=== PATIENT | female | born 1965 | race Caucasian/White ===

== ENCOUNTER 2016-03-03 00:45 | Observation (INO) | payer OTHER ==
[~2016-03-03] VITALS: Ht 157.5 cm; Wt 86.5 kg
[2016-03-03] VITALS (9 sets, daily range): BP systolic 124–166; BP diastolic 77–99; PULSE 66–86; TEMP 36.7–37.2; O2SAT 93–97; Ht 157.5 cm; Wt 86.5 kg
[~2016-03-03 00:45] MED LIST: ALBUAER2 INH; ASPI81TA57 PO; BUPRTAB51 PO; CLON0.5T3 PO; CTP1X PO; LORA-741 PO; LOSA100T33 PO; MULTTAB58 PO
[2016-03-03] MEDS ORDERED: SODIUM CHLORIDE 0.9% 1000ML 1,000 ML IV SCH (01:01)
[2016-03-03 01:32] LABS: BASO % 0.2 %; BASO ABS # 0.02 K/uL (0-0.2); COMPLETE YES; EOS % 2.5 %; HEMATOCRIT 41.5 % (37-47); IG% 0.1 %; LYMPH % 18.8 %; LYMPH ABS # 1.72 K/uL (1.2-3.4); MEAN CORPUSCULAR HEMOGLOBIN 27.8 pg (25-34); MEAN CORPUSCULAR HGB CONC 33.5 g/dl (32-36); MEAN PLATELET VOLUME 10.6 fL (7.4-10.4); MONO % 5.7 %; NEUT % 72.7 %; PLATELET COUNT 248 K/uL (130-400); WHITE BLOOD COUNT 9.15 K/uL (4.8-10.8)
[2016-03-03 01:42] LABS: PARTIAL THROMBOPLASTIN RATIO 1.2; PROTHROMBIN TIME (PATIENT) 10.5 SECONDS (9.0-12.0)
[2016-03-03 01:49] LABS: CHLORIDE 99 mmol/L (98-107); POTASSIUM 3.3 mmol/L (3.5-5.1); SODIUM 140 mmol/L (136-145)
[2016-03-03 01:54] LABS: ALT/SGPT 21 U/L (12-78); BLOOD UREA NITROGEN 19 mg/dl (7-18); BUN/CREATININE RATIO 22.8 (10-20); CARBON DIOXIDE 31 mmol/L (21-32); CREATININE 0.83 mg/dl (0.60-1.20); GLUCOSE 96 mg/dl (70-99)
[2016-03-03 01:58] LABS: AST/SGOT 19 U/L (15-37)
[2016-03-03 01:59] LABS: ALB/GLOB RATIO 0.8 (0.9-2); ALKALINE PHOSPHATASE 110 U/L (45-117)
[2016-03-03 02:04] LABS: CKMB/CK RATIO 0.5 (0-3.0)
[2016-03-03 02:20] LABS: BENZODIAZEPINE, URINE NEG (NEG); COCAINE,URINE NEG (NEG); PHENCYCLIDINE, URINE NEG (NEG)
[2016-03-03 02:25] LABS: LYME DISEASE AB IGG NEG (NEG); LYME DISEASE AB IGM NEG (NEG)
[2016-03-03] MEDS ORDERED: ASPIRIN 324 MG CHEW PO STA (03:04)
--- NOTE | 2016-03-03 04:45 | EMERGENCY ROOM VISIT NOTE ---
History First contact with patient: 00:54 Chief Complaint: NEURO SYMPTOMS Stated Complaint: STROKE SYMPTOMS Nursing Triage Summary: pt reports feeling dizzy with numb feeling in L side of face since this AM , then took reg night time medication of 0.5 clonazepam and cont to feel "shakey " called PCP told to take another 0.5mg of clonazepam, and spouse states " she just passed out I caught her" ,denies GROSSMAN or vision changes , denies NV at this time History of Present Illness The patient is a 50 year old female who presents to the Emergency Room with complaints of right-sided facial numbness that began around 3:30 PM, roughly 9 hours prior to arrival. Patient states the sensation begins around her cheek bone, crosses her lips, into the left side of her mandible. The patient does not have injury or trauma. She does not report recent illness. She was driving at the onset of symptoms, and went home. She states that this evening she felt that her blood pressure was elevated. She has had episodes like this in the past, and took clonazepam with only minimal improvement of symptoms. The patient then called her primary care physician's office, and she was told to take another half tablet of clonazepam. After the patient did this she had a witnessed syncopal episode. The patient did not strike her head or have seizure-like activity with the syncope. The patient was able to come to after several seconds, but was slow to return to baseline. She reportedly had difficulty with speech and forming words immediately after the syncope. This did resolve after a few minutes. The patient presents with a male special warfare boat operator, who does provide this history. At this time the patient continues with the facial discomfort. She is without significant headache, chest pain, chest tightness, or shortness of breath. She is able to move her arms and legs spontaneously. She has not had sore symptoms in the past. Review of Systems More than 10 systems were reviewed and otherwise negative with the exception of history of present illness. Past Medical/Surgical History Medical Problems: (1) Asthma, Unspecified (2) Depression (3) Disorder Of Thyroid Nos (4) Hypertension Nos Surgical Problems: (1) H/O partial thyroidectomy Family History No pertinent family history Social History Smoking Status: Never Smoker Marital Status: Occupation Status: employed Current/Historical Medications Scheduled Albuterol (Ventolin), 2 PUFFS INH DIRECTED Aspirin (Aspirin Ec Lo-Dose), 81 MG PO NOON Bupropion (Wellbutrin-Xl), 150 MG PO NOON Lorazepam (Ativan), 0.5 MG PO DIRECTED Losartan Potassium & Hydrochlo (Losartan Potassium/Hydroc), 1 TAB PO NOON Multiple Vitamin (Multivitamin), 1 TAB PO NOON Scheduled PRN Clonazepam (Klonopin), 0.5 MG PO HS PRN for Sleep Clonidine HCl (Clonidine HCl), 1 TAB PO DAILY PRN for Hypertension Allergies Coded Allergies: Iodinated Contrast Media (Verified Allergy, Severe, ANAPHYLAXIS AND PASSED OUT, 03/03/16) Iodine (Verified Allergy, Severe, ANAPHYLAXIS AND PASSED OUT, 03/03/16) Sulfa Drugs (Verified Allergy, Unknown, RASH, 03/03/16) Thiopental (Verified Allergy, Unknown, DIFFICULTY WAKING UP, 03/03/16) Physical Exam Vital Signs Date Time Temp Pulse Resp B/P Pulse Ox O2 Delivery O2 Flow Rate FiO2 03/03/16 02:39 76 18 143/87 96 Room Air 03/03/16 01:39 80 18 148/99 96 Room Air 03/03/16 01:27 76 03/03/16 00:47 36.9 93 20 168/91 96 Room Air Physical Exam VITALS: Vitals are noted on the nurse's note and reviewed by myself. Vital signs stable. GENERAL: Well-developed, well-nourished, white female, who is in no acute distress and resting comfortably. Patient is cooperative with the examination. HEAD: Normocephalic atraumatic. EARS: External ear normal. External auditory canals clear, tympanic membranes pearly valenzuela without erythema or effusion bilaterally. EYES: Pupils equal round and reactive to light and accommodation. Conjunctivae without injection, sclerae without icterus. Extraocular movements intact. She is able to move her eyebrows up and down. NOSE: Patent, turbinates without inflammation or discharge. MOUTH: Mucous membranes moist. Tonsils are not enlarged. Pharynx without erythema, blood, or exudate. Uvula midline. Airway patent. Very slight drooping of the right side mouth, although the patient is able to smile and frown. NECK: Supple without nuchal rigidity. No lymphadenopathy. No thyromegaly. Cervical spine is nontender. HEART: Regular rate and rhythm without murmurs gallops or rubs. LUNGS: Clear to auscultation bilaterally without wheezes, rales or rhonchi. No retractions or accessory muscle use. ABDOMEN: Positive normal bowel sounds x 4. Soft, nontender, without masses or organomegaly. No guarding or rebound tenderness. MUSCULOSKELETAL: No muscle atrophy, erythema, or edema noted. Full range of motion without joint tenderness in all extremities. Strength 5/5 throughout. No tenderness to palpation. Normal gait. Strength 5/5 throughout. No pronator drift. NEURO: Patient was alert and oriented to person place and time. CN II through XII grossly intact. Deep tendon reflexes 2+ throughout. GCS 15. SKIN: The skin was without rashes, erythema, edema, or bruising. Capillary reflex less than 2 seconds. Medical Decision & Procedures ER Provider Diagnostic Interpretation: Preliminary Findings Only See Final Report For Complete Findings CT HEAD: No evidence of acute intracranial abnormality. Laboratory Results 03/03/16 01:15 Red Blood Count 5.00, Mean Corpuscular Volume 83.0, Mean Corpuscular Hemoglobin 27.8, Mean Corpuscular Hemoglobin Concent 33.5, Mean Platelet Volume 10.6, Neutrophils (%) (Auto) 72.7, Lymphocytes (%) (Auto) 18.8, Monocytes (%) (Auto) 5.7, Eosinophils (%) (Auto) 2.5, Basophils (%) (Auto) 0.2, Neutrophils # (Auto) 6.65, Lymphocytes # (Auto) 1.72, Monocytes # (Auto) 0.52, Eosinophils # (Auto) 0.23, Basophils # (Auto) 0.02 03/03/16 01:15 Test 03/03/16 01:15 03/03/16 01:45 White Blood Count 9.15 K/uL (4.8-10.8) Red Blood Count 5.00 M/uL (4.2-5.4) Hemoglobin 13.9 g/dL (12.0-16.0) Hematocrit 41.5 % (37-47) Mean Corpuscular Volume 83.0 fL (80-100) Mean Corpuscular Hemoglobin 27.8 pg (25-34) Mean Corpuscular Hemoglobin Concent 33.5 g/dl (32-36) Platelet Count 248 K/uL (130-400) Mean Platelet Volume 10.6 fL (7.4-10.4) Neutrophils (%) (Auto) 72.7 % Lymphocytes (%) (Auto) 18.8 % Monocytes (%) (Auto) 5.7 % Eosinophils (%) (Auto) 2.5 % Basophils (%) (Auto) 0.2 % Neutrophils # (Auto) 6.65 K/uL (1.4-6.5) Lymphocytes # (Auto) 1.72 K/uL (1.2-3.4) Monocytes # (Auto) 0.52 K/uL (0.11-0.59) Eosinophils # (Auto) 0.23 K/uL (0-0.5) Basophils # (Auto) 0.02 K/uL (0-0.2) RDW Standard Deviation 40.1 fL (36.4-46.3) RDW Coefficient of Variation 13.3 % (11.5-14.5) Immature Granulocyte % (Auto) 0.1 % Immature Granulocyte # (Auto) 0.01 K/uL (0.00-0.02) Prothrombin Time 10.5 SECONDS (9.0-12.0) Prothromb Time International Ratio 1.0 (0.9-1.1) Activated Partial Thromboplast Time 31.7 SECONDS (21.0-31.0) Partial Thromboplastin Ratio 1.2 Anion Gap 10.0 mmol/L (3-11) Est Creatinine Clear Calc Drug Dose 81.2 ml/min Estimated GFR () 94.0 Estimated GFR (Non- 81.1 BUN/Creatinine Ratio 22.8 (10-20) Calcium Level 9.0 mg/dl (8.5-10.1) Total Bilirubin 0.2 mg/dl (0.2-1) Aspartate Amino Transf (AST/SGOT) 19 U/L (15-37) Alanine Aminotransferase (ALT/SGPT) 21 U/L (12-78) Alkaline Phosphatase 110 U/L (45-117) Total Creatine Kinase 234 U/L (26-192) Creatine Kinase MB 1.2 ng/ml (0.5-3.6) Creatine Kinase MB Ratio 0.5 (0-3.0) Troponin I < 0.015 ng/ml (0-0.045) Total Protein 8.0 gm/dl (6.4-8.2) Albumin 3.6 gm/dl (3.4-5.0) Globulin 4.4 gm/dl (2.5-4.0) Albumin/Globulin Ratio 0.8 (0.9-2) Lyme Disease IgG Antibody NEG (NEG) Lyme Disease IgM Antibody NEG (NEG) Urine Opiates Screen NEG (NEG) Urine Methadone, Qualitative NEG (NEG) Urine Barbiturates NEG (NEG) Urine Phencyclidine (PCP) Level NEG (NEG) Ur Amphetamine/Methamphetamine NEG (NEG) MDMA (Ecstasy) Screen POS (NEG) Urine Benzodiazepines Screen NEG (NEG) Urine Cocaine Metabolite NEG (NEG) Urine Marijuana (THC) NEG (NEG) Medications Administered Medications (Trade) Dose Ordered Sig/Mathew Route Start Time Stop Time Status Last Admin Dose Admin Sodium Chloride (Nss 1000ml) 1,000 ml @ 50 mls/hr Q20H IV 03/03/16 01:01 04/02/16 01:00 03/03/16 02:03 50 MLS/HR Aspirin (Aspirin Chew) 324 mg NOW STAT PO 03/03/16 03:04 03/03/16 03:05 DC 03/03/16 03:11 324 MG ED Course Physical exam and history were performed. Nursing notes and EMR were reviewed. Patient appears to have vague right-sided facial numbness that began greater than 9 hours prior to arrival. The patient subsequently took at home medications, and had a witnessed syncopal episode with collapse. On examination the patient does have a very mild right-sided drooping of the outside of her mouth. This does not constitute a distinct facial droop at this time. She is able to smile and frown. Additionally she is able to move her eyebrows on command. She has full strength and range of motion to her extremities. IV access was established and labs were obtained. The patient was placed on the monitor and hydrated with normal saline. CT scan of the head was performed. I discussed the case my attending physician, Dr. Sanchez, who remain closely involved in patient care and decision making. The patient's blood work is as above and was reviewed. She does not have a significantly elevated white blood cell count, anemia, bandemia, or gross electrolyte imbalance. Troponin is negative. Her other blood work is fairly unremarkable. CT scan does not show evidence of acute intracranial abnormality. The patient did have persisting, but not worsening right-sided facial drooping. Her Lyme is negative. Stroke scale was performed by nursing, and was 0. Overall I do have concern for the patient, as she did have a syncopal episode combined with right-sided mouth drooping. She does not appear to have a classic Aldana's palsy or stroke. The patient is felt to benefit from further inpatient evaluation. The case was discussed with the on-call hospitalist, who agreed to evaluate the patient here in the emergency department for further care and evaluation. The chart was completed utilizing [employer] Speech Voice Recognition Software. Grammatical errors, random word insertions, pronoun errors, and incomplete sentences are an occasional consequence of this system due to software limitations, ambient noise, and hardware issues. Any formal questions or concerns about the content, text, or information contained within the body of this dictation should be directly addressed to the provider for clarification. . Medical Decision Differential diagnosis: Etiologies such as vasovagal event, stroke, tia, bells palsy, infection, hypoglycemia, electrolyte abnormalities, cardiac sources, intracerebral event, toxicologic, neurologic, as well as others were entertained. Impression Primary Impression: Right facial numbness Additional Impression: Syncope Departure Information Referrals Tiarra Martínez C.R.N.P (PCP) Patient Instructions A Signature Page, [facility]
--- NOTE | 2016-03-03 07:16 | DIAGNOSTIC IMAGING REPORT ---
CT OF THE HEAD WITHOUT CONTRAST CLINICAL HISTORY: Stroke like symptoms. Right facial numbness. Hypertension. COMPARISON STUDY: No previous studies for comparison. CT DOSE: 537.48 mGy.cm TECHNIQUE: Helical axial images of the head were obtained without IV contrast. Automated exposure control was utilized for the study. FINDINGS: No acute intracranial hemorrhage, midline shift or mass effect is present. Brain volume is normal. Ventricular system is normal. The basilar cisterns are patent. There are no extra-axial collections. Iqbal-white differentiation is maintained. There are no findings to suggest acute dural sinus thrombosis or acute territorial infarct. There are no significant calvarial abnormalities. Visualized portions of the sinuses are clear with exception of minimal mucosal thickening of the ethmoid sinuses. IMPRESSION: No acute intracranial findings. Electronically signed by: Anmol Hassan M.D. 03/03/2016 7:14 AM
[2016-03-03] MEDS ORDERED: LOSARTAN POTASSIUM PO SCH (08:30)
[2016-03-03] MEDS ORDERED: HydrALAZINE HCL 20 MG/ML VIAL IV. PRN (08:30)
[2016-03-03] MEDS ORDERED: MAGNESIUM HYDROXIDE SUSP 30 ML UDC PO PRN (08:30)
[2016-03-03] MEDS ORDERED: ALUMINUM/MAGNESIUM/SIMETH (MAALOX MAX) 30 ML UDC PO PRN (08:30)
[2016-03-03] MEDS ORDERED: HYDROCHLO PO SCH (08:30)
[2016-03-03] MEDS ORDERED: ALBUTEROL HFA 8 GM INHALER INH PRN (08:30)
[2016-03-03] MEDS ORDERED: [UNRECOGNIZED DRUG - OTHER] PO SCH (08:30)
[2016-03-03] MEDS ORDERED: ONDANSETRON INJ 2 MG/ML 2 ML VIAL IV PRN (08:30)
[2016-03-03] MEDS ORDERED: POTASSIUM CHLORIDE 20 MEQ TABCR PO ONE (08:44)
[2016-03-03] MEDS ORDERED: IV FLUIDS COMPLETED PRN (09:00)
[2016-03-03] MEDS ORDERED: POLYETHYLENE (MIRALAX) 17 GM PACK PO PRN (09:00)
--- NOTE | 2016-03-03 09:09 | History and Physical ---
History & Physical Date & Time of Service: Mar 03, 2016 at 08:45 Chief Complaint: Stroke Symptoms Primary Care Physician: Tiarra Martínez C.R.N.P History of Present Illness Source: patient Ms. Hawknis is a 50 y/o female with PMHx of HTN, Anxiety/Depression, and Asthma who presents to the ED c/o R facial numbness that started at 1530 on 03/02/16 and syncope with collapse. She states she was driving when this sensation started. It is located in the R cheek and extends across the upper lip and down to the L mandible. She states she has had similar complaints in the past but they have not been this severe. She denies trauma or injury to the face. Reports history of cervical neck discomfort that has been minimally worked up in the past and reports intermittent radiculopathy of the L down to the fingers. When she returned home she took half a tablet of Clonazepam which improved the symptoms minimally. She called her PCP who instructed her to take another 1/2 tablet of Clonazepam. She states this was approx half hour from the first dose and almost immediately had a witnessed syncopal episode. She states she felt unsteady on her feet and her son caught her. She did not hit her head. She came to almost instantaneously but states she felt confused and "I felt like I couldn't move my mouth". She does report recent illness of a sore throat, intermittent low grade fever, and productive cough x 1 week that has been improving but a minimal cough remains. Associated mild headache described as dull and diffuse. She has had headaches in the past but has never been diagnosed with Migraines. Reports initial blurry vision after syncopal episode that resolved. She reports muscle cramping that started after IV fluids in ED. She denies current fever/ chills, CP, SOB, abdominal pain, N/V, dysuria, constipation/diarrhea. In the ED, she was hydrated and given ASA [address] without acute intracranial findings. Calcium WNL. Potassium mildly low at 3.3. Drug screen positive for Ecstasy however on Wellbutrin. She will be admitted to telemetry obs for further evaluation and care. Past Medical/Surgical History Medical Problems: (1) Asthma, Unspecified Status: Chronic (2) Depression Status: Chronic (3) Disorder Of Thyroid Nos Status: Chronic (4) Hypertension Nos Status: Chronic Surgical Problems: (1) H/O partial thyroidectomy Status: Resolved Family History No pertinent family history Social History Smoking Status: Never Smoker Smokeless Tobacco Use: No Alcohol Use: none Drug Use: none Marital Status: Occupational Status: employed Immunizations History of Influenza Vaccine: No History of Tetanus Vaccine?: Yes History of Pneumococcal: No History of Hepatitis B Vaccine: No Multi-Drug Resistant Organisms History of MDRO: No Allergies Coded Allergies: Iodinated Diagnostic Agents (Verified Allergy, Severe, ANAPHYLAXIS, 03/03/16 ) Iodine (Verified Allergy, Severe, ANAPHYLAXIS AND PASSED OUT, 03/03/16) Sulfa Antibiotics (Verified Allergy, Mild, RASH, 03/03/16) Thiopental (Verified Adverse Reaction, Unknown, DIFFICULTY WAKING UP, ) Home Medications Scheduled Albuterol (Ventolin), 2 PUFFS INH DIRECTED Aspirin (Aspirin Ec Lo-Dose), 81 MG PO NOON Bupropion (Wellbutrin-Xl), 150 MG PO NOON Lorazepam (Ativan), 0.5 MG PO DIRECTED Losartan Potassium & Hydrochlo (Losartan Potassium/Hydroc), 1 TAB PO NOON Multiple Vitamin (Multivitamin), 1 TAB PO NOON Scheduled PRN Clonazepam (Klonopin), 0.5 MG PO HS PRN for Sleep Clonidine HCl (Clonidine HCl), 1 TAB PO DAILY PRN for Hypertension Review of Systems Constitutional: No chills, No fever Eyes: + worsening of vision (blurred vision that resolved) ENT: No nasal symptoms, No sore throat, No trouble swallowing Respiratory: + cough, + sputum, No dyspnea on exertion, No shortness of breath Cardiovascular: No chest pain, No palpitations Abdomen: No constipation, No diarrhea, No nausea, No pain, No vomiting Musculoskeletal: + problem reported (neck and head tenderness), No calf pain, No swelling Genitourinary - Female: No dysuria Neurologic: + numbness/tingling (R face), + vertigo, No weakness Psychiatric: + anxiety (resolved) Endocrine: No fatigue Hematologic / Lymphatic: No abnormal bleeding/bruising, No clotting problems Integumentary: No new/changing skin lesions, No rash Physical Exam Vital Signs Date Time Temp Pulse Resp B/P Pulse Ox O2 Delivery O2 Flow Rate FiO2 03/03/16 06:57 67 16 124/83 03/03/16 05:24 67 16 150/81 94 Room Air 03/03/16 05:07 62 03/03/16 04:24 73 18 129/78 96 Room Air 03/03/16 02:39 76 18 143/87 96 Room Air 03/03/16 01:39 80 18 148/99 96 Room Air 03/03/16 01:27 76 03/03/16 00:47 36.9 93 20 168/91 96 Room Air General Appearance: WD/WN, no apparent distress Head: normocephalic, atraumatic Eyes: PERRL, EOMI, sclerae normal ENT: hearing grossly normal, pharynx normal Neck: supple, no JVD, no carotid bruits, trachea midline Respiratory/Chest: lungs clear, normal breath sounds, no respiratory distress, no accessory muscle use Cardiovascular: regular rate, rhythm, no gallop, no murmur Abdomen/GI: normal bowel sounds, non tender, soft Back: normal inspection, no CVA tenderness Extremities/Musculoskelatal: no calf tenderness, no pedal edema Neurologic/Psych: no motor/sensory deficits, alert, oriented x 3 Skin: normal color, warm/dry Diagnostics Laboratory Results Results Past 24 Hours Test 03/03/16 01:01 03/03/16 01:15 03/03/16 01:45 03/03/16 08:23 Range/Units Creatine Kinase MB Ratio 0.5 0-3.0 White Blood Count 9.15 4.8-10.8 K/uL Red Blood Count 5.00 4.2-5.4 M/uL Hemoglobin 13.9 12.0-16.0 g/dL Hematocrit 41.5 37-47 % Mean Corpuscular Volume 83.0 80-100 fL Mean Corpuscular Hemoglobin 27.8 25-34 pg Mean Corpuscular Hemoglobin Concent 33.5 32-36 g/dl Platelet Count 248 130-400 K/uL Mean Platelet Volume 10.6 7.4-10.4 fL Neutrophils (%) (Auto) 72.7 % Lymphocytes (%) (Auto) 18.8 % Monocytes (%) (Auto) 5.7 % Eosinophils (%) (Auto) 2.5 % Basophils (%) (Auto) 0.2 % Neutrophils # (Auto) 6.65 1.4-6.5 K/uL Lymphocytes # (Auto) 1.72 1.2-3.4 K/uL Monocytes # (Auto) 0.52 0.11-0.59 K/uL Eosinophils # (Auto) 0.23 0-0.5 K/uL Basophils # (Auto) 0.02 0-0.2 K/uL RDW Standard Deviation 40.1 36.4-46.3 fL RDW Coefficient of Variation 13.3 11.5-14.5 % Immature Granulocyte % (Auto) 0.1 % Immature Granulocyte # (Auto) 0.01 0.00-0.02 K/uL Prothrombin Time 10.5 9.0-12.0 SECONDS Prothromb Time International Ratio 1.0 0.9-1.1 Activated Partial Thromboplast Time 31.7 21.0-31.0 SECONDS Partial Thromboplastin Ratio 1.2 Sodium Level 140 136-145 mmol/L Potassium Level 3.3 3.5-5.1 mmol/L Chloride Level 99 98-107 mmol/L Carbon Dioxide Level 31 21-32 mmol/L Anion Gap 10.0 3-11 mmol/L Blood Urea Nitrogen 19 7-18 mg/dl Creatinine 0.83 0.60-1.20 mg/dl Est Creatinine Clear Calc Drug Dose 81.2 ml/min Estimated GFR () 94.0 Estimated GFR (Non- 81.1 BUN/Creatinine Ratio 22.8 10-20 Random Glucose 96 70-99 mg/dl Calcium Level 9.0 8.5-10.1 mg/dl Total Bilirubin 0.2 0.2-1 mg/dl Aspartate Amino Transf (AST/SGOT) 19 15-37 U/L Alanine Aminotransferase (ALT/SGPT) 21 12-78 U/L Alkaline Phosphatase 110 45-117 U/L Total Creatine Kinase 234 26-192 U/L Creatine Kinase MB 1.2 0.5-3.6 ng/ml Troponin I < 0.015 0-0.045 ng/ml Total Protein 8.0 6.4-8.2 gm/dl Albumin 3.6 3.4-5.0 gm/dl Globulin 4.4 2.5-4.0 gm/dl Albumin/Globulin Ratio 0.8 0.9-2 Lyme Disease IgG Antibody NEG NEG Lyme Disease IgM Antibody NEG NEG Urine Opiates Screen NEG NEG Urine Methadone, Qualitative NEG NEG Urine Barbiturates NEG NEG Urine Phencyclidine (PCP) Level NEG NEG Ur Amphetamine/Methamphetamine NEG NEG MDMA (Ecstasy) Screen POS NEG Urine Benzodiazepines Screen NEG NEG Urine Cocaine Metabolite NEG NEG Urine Marijuana (THC) NEG NEG Test 03/03/16 08:30 03/03/16 08:38 03/03/16 08:39 Range/Units Creatine Kinase MB Ratio 0-3.[address] OF THE HEAD WITHOUT CONTRAST CLINICAL HISTORY: Stroke like symptoms. Right facial numbness. Hypertension. COMPARISON STUDY: No previous studies for comparison. CT DOSE: 537.48 mGy.cm TECHNIQUE: Helical axial images of the head were obtained without IV contrast. Automated exposure control was utilized for the study. FINDINGS: No acute intracranial hemorrhage, midline shift or mass effect is present. Brain volume is normal. Ventricular system is normal. The basilar cisterns are patent. There are no extra-axial collections. Iqbal-white differentiation is maintained. There are no findings to suggest acute dural sinus thrombosis or acute territorial infarct. There are no significant calvarial abnormalities. Visualized portions of the sinuses are clear with exception of minimal mucosal thickening of the ethmoid sinuses. IMPRESSION: No acute intracranial findings. Impression Assessment and Plan Ms. Hawkins is a 50 y/o female with PMHx of HTN, Anxiety/Depression, and Asthma who presents to the ED c/o R facial numbness that started at 1530 on 03/02/16 and syncope with collapse. In the ED, she was hydrated and given ASA [address] without acute intracranial findings. Calcium WNL. Potassium mildly low at 3.3. Drug screen positive for Ecstasy however on Wellbutrin. She will be admitted to telemetry obs for further evaluation and care. Syncope with Collapse: TIA (unlikely) vs Metabolic vs ACS (unlikely) vs Anxiety - Imaging -- Head CT - image and report reviewed - no acute intracranial findings - Serial cardiac enzymes - Orthostatics - TSH - Sed rate - B12 - Echo - MRI Brain - U/S Carotid HTN: - Losartan/HCTZ daily - Hydralazine 10 mg Q6H PRN Anxiety/Depression: - States she does take Klonopin PRN - Does not report a Rx for Ativan on Med Rec - Will just use Klonopin HS at this time - Wellbutrin 150 mg daily DVT Prophylaxis: - Lovenox 40 mg SC daily Code Status: FULL RESUSCITATION Disposition: - Obs Tele Level of Care Telemetry Resuscitation Status FULL RESUSCITATION VTE Prophylaxis VTE Risk Assessment Done? Y/N: Yes Risk Level: Moderate Given or contraindicated: Enoxaparin (Lovenox)SQ Note Attending Attestation: Pt seen/examined, chart reviewed, and care plan d/w FRANK Adam. I agree with the hernandez components of her admission documentation. 50yo female with history of asthma, HTN, anxiety/depression, and migraines who presented with right-sided facial numbness that extends across the midline to the left mouth/mandible area, brief syncopal episode yesterday, headache, and recent URI. During my assessment the patient reported a mild frontal headache but otherwise was doing well. She reported that her right-sided facial numbness was improving. Denied any numbness of the right arm or leg. Multiple psychosocial stressors of late, but she would not elaborate on this. PMH, PSH, allergies, meds, sochx, famhx, ros - reviewed gen - nad face - no complete droop or droop of the lower 2/3 face on right mouth - MMM, tongue midline skin - no rash neck - no JVD or bruits heart - RRR, s1, s2 lungs - CTA b/l abd - soft, NT, BS+ ext - no edema neuro - strength 5/5 x 4 exts; PERRL; EOMI; CN 3-12 intact psych - affect restricted labs - cbc, bmp normal sed rate 38, but crp nearly normal b12, mag normal lyme's neg CT head negative for acute stroke or ICH EKG w/o ischemic changes A/P: 1. right sided facial numbness crossing the midline to the left 2. syncope 3. anxiety/depression 4. HTN 5. psychosocial stressors complete "TIA" work up with MRI brain, MRA head, carotid duplex study, echo, telemetry orthostatic BPs losartan BID for HTN toradol 30mg IV x 1 for headache the facial numbness is quite puzzling as b/l symptoms is rare and highly unusual Tatiana SWANSON MD total time about 70 minutes
--- NOTE | 2016-03-03 09:18 | DIAGNOSTIC IMAGING REPORT ---
BILATERAL CAROTID DOPPLER STUDY HISTORY: Stroke. Change in mental status. Syncope COMPARISON: None. TECHNIQUE: Real-time, grayscale, and color Doppler sonography of the carotid arteries was performed. Imaging reviewed in the transverse and longitudinal planes. All measurements were calculated based on NASCET criteria. FINDINGS: Antegrade flow is seen in the bilateral vertebral arteries. The brachial pressures are hemodynamically similar. The peak systolic velocity within the right ICA is 69. The right systolic ratio is 0.6. The peak systolic velocity within the left ICA is 79. The left systolic ratio is 0.9. IMPRESSION: No hemodynamically significant stenosis seen within the carotid arteries. Electronically signed by: Eduin Fish M.D. 03/03/2016 9:16 AM
[2016-03-03] MEDS: ACETAMINOPHEN 325 MG TAB PO PRN ×2 (09:52→17:13)
[2016-03-03 10:42] LABS: CKMB/CK RATIO 0.4 (0-3.0); MAGNESIUM 2.3 mg/dl (1.8-2.4)
[2016-03-03] MEDS ORDERED: ENOXAPARIN 40 MG/0.4 ML SYR SC SCH (12:00)
[2016-03-03] MEDS ORDERED: LOSARTAN POTASSIUM 50 MG TAB PO SCH (12:00)
[2016-03-03] MEDS: BuPROPion XL 300 MG TABCR PO SCH (12:00)
[2016-03-03] MEDS: SODIUM CHLORIDE 0.9% 1000ML 1,000 ML IV SCH ×2 (12:02→22:32)
[2016-03-03] MEDS: ASPIRIN 81 MG ECTAB PO SCH (13:12)
[2016-03-03] MEDS: LOSARTAN POTASSIUM 50 MG TAB PO SCH (13:25)
[2016-03-03] MEDS: HYDROCHLOROTHIAZIDE 25 MG TAB PO SCH (13:26)
--- NOTE | 2016-03-03 14:07 | DIAGNOSTIC IMAGING REPORT ---
MR ANGIOGRAPHY OF THE [place] NO CONTRAST CLINICAL HISTORY: Right facial numbness. Pelvis and right. Possible vasculitis. Syncope. COMPARISON STUDY: None. A 3-D [id number] MR angiographic sequence of the [place] was performed. Both the source and projection images were reviewed. There is no evidence of major intracranial branch occlusion. There is no evidence of intracranial stenosis. There are no lesions suspicious for aneurysm. IMPRESSION: Unremarkable MR angiography of the [place]. No MR angiographic evidence of intracranial vasculitis Electronically signed by: Lito Marshall M.D. 03/03/2016 2:05 PM
--- NOTE | 2016-03-03 14:15 | DIAGNOSTIC IMAGING REPORT ---
MRI OF THE BRAIN WITHOUT CONTRAST CLINICAL HISTORY: Syncope, right facial numbness, hypertension. COMPARISON STUDY: CT scan the head dated 03/03/2016 FINDINGS: Sagittal T1, axial diffusion, proton density and T2 weighted axial, coronal FLAIR, and axial T1-weighted images were acquired. No intra or extra-axial mass lesions are visualized Axial diffusion-weighted images reveal no evidence of acute or subacute infarction. There is no evidence of ventricular dilatation. Proton density T2-weighted and FLAIR images reveal no significant intraparenchymal signal abnormalities. There are no abnormal flow voids. There are minor inflammatory changes within the ethmoid sinuses. There is a small midline scalp nodule. IMPRESSION: No acute intracranial findings. No evidence of acute or subacute infarction. No evidence of intracranial mass. Electronically signed by: Lito Marshall M.D. 03/03/2016 2:13 PM
[2016-03-03] MEDS ORDERED: KETOROLAC TROMETHAMINE 30 MG/ML VIAL IV STA (15:59)
--- NOTE | 2016-03-03 16:16 | ECHOCARDIOGRAM REPORT ---
*NOTICE TO RECEIVING REPUBLICAN AGENCY This information is strictly Confidential and protected under [place] law. [place] law prohibits you from making any further disclosure of this information unless further disclosure is expressly permitted by the written consent of the person to whom it pertains or is authorized by law. A general authorization for the release of medical or other information is not sufficient for this purpose. Hospital accepts no responsibility if the information is made available to any other person, INCLUDING THE PATIENT. Interpretation Summary * Name: SERENE MEDRANO Study Date: 03/03/2016 02:13 PM BP: 143/90 mmHg * Patient Location: [facility] HR: 71 * : 1965 (M/d/yyyy) Gender: Female Height: 62 in * Age: 50 yrs Ethnicity: [place] Weight: 191 lb * Ordering Physician: Maranda Adam * Referring Physician: Self, Referred * Performed By: Alyse Briceño RDCS * * Reason For Study: Syncope * BSA: 1.9 m2 * -- Conclusions -- * Compared with 12/08/07 study, no significant change. * The left ventricle is normal in size. * Left ventricular systolic function is normal. * Ejection Fraction = 60-65%. * The left ventricular wall motion is normal. * There is borderline concentric left ventricular hypertrophy. * Grade I diastolic dysfunction, (abnormal relaxation pattern). * There is mild mitral regurgitation. * The left atrium is mildly dilated. * There is trace tricuspid regurgitation. * Right ventricular systolic pressure is normal. * Trivial posterior pericardial effusion. Procedure Details * A complete two-dimensional transthoracic echocardiogram was performed (2D, M-mode, Doppler and color flow Doppler). Left Ventricle * The left ventricle is normal in size. * There is borderline concentric left ventricular hypertrophy. * Ejection Fraction = 60-65%. * Left ventricular systolic function is normal. * The left ventricular wall motion is normal. Right Ventricle * The right ventricle is normal in size and function. Atria * The left atrium is mildly dilated. * Right atrial size is normal. * The interatrial septum is intact with no evidence for an atrial septal defect. Mitral Valve * The mitral valve is normal in structure and function. * There is mild mitral regurgitation. Tricuspid Valve * The tricuspid valve is normal in structure and function. * There is trace tricuspid regurgitation. * Right ventricular systolic pressure is normal. Aortic Valve * The aortic valve is normal in structure and function. * There is no significant aortic regurgitation. Pulmonic Valve * The pulmonary valve is inadequately visualized, but the Doppler data is adequate for interpretation. Great Vessels * The aortic root is normal size. * Aortic arch of normal dimension. * No obvious dissection could be visualized. * The pulmonary artery is not well visualized, but is probably normal size. Pericardium/Pleural * Trivial posterior pericardial effusion. Great Vessels * Normal inferior vena cava diameter and respiratory variation suggests normal central venous pressure. Left Ventricular Diastolic Function * Grade I diastolic dysfunction, (abnormal relaxation pattern). MMode 2D Measurements and Calculations IVSd 0.99 cm IVSs 1.4 cm LVIDd 4.5 cm LVIDs 2.9 cm LVPWd 1.1 cm LVPWs 1.6 cm IVS/LVPW 0.92 FS 35.8 % EDV(Teich) 92.0 ml ESV(Teich) 31.8 ml EF(Teich) 65.5 % EDV(cubed) 90.6 ml ESV(cubed) 24.0 ml EF(cubed) 73.5 % % IVS thick 40.7 % % LVPW thick 49.9 % LV mass(C)d 159.7 grams LV mass(C)dI 85.2 grams/m\S\2 LV mass(C)s 150.5 grams LV mass(C)sI 80.3 grams/m\S\2 SV(Teich) 60.3 ml SI(Teich) 32.2 ml/m\S\2 SV(cubed) 66.6 ml SI(cubed) 35.5 ml/m\S\2 Ao root diam 2.6 cm Ao root area 5.3 cm\S\2 ACS 1.7 cm LA dimension 3.8 cm asc Aorta Diam 3.4 cm LA/Ao 1.5 LVAd ap4 23.1 cm\S\2 LVLd ap4 7.5 cm EDV(MOD-sp4) 63.7 ml EDV(sp4-el) 60.0 ml LVAs ap4 11.2 cm\S\2 LVLs ap4 5.8 cm ESV(MOD-sp4) 20.0 ml ESV(sp4-el) 18.4 ml EF(MOD-sp4) 68.6 % EF(sp4-el) 69.3 % LVAd ap2 20.7 cm\S\2 LVLd ap2 8.3 cm EDV(MOD-sp2) 43.8 ml EDV(sp2-el) 43.8 ml LVAs ap2 10.7 cm\S\2 LVLs ap2 7.0 cm ESV(MOD-sp2) 14.6 ml ESV(sp2-el) 14.0 ml EF(MOD-sp2) 66.6 % EF(sp2-el) 68.1 % LVLd %diff 9.2 % EDV(MOD-bp) 54.7 ml LVLs %diff 17.3 % ESV(MOD-bp) 18.5 ml EF(MOD-bp) 66.1 % SV(MOD-sp4) 43.7 ml SI(MOD-sp4) 23.3 ml/m\S\2 SV(MOD-sp2) 29.1 ml SI(MOD-sp2) 15.5 ml/m\S\2 SV(MOD-bp) 36.2 ml SI(MOD-bp) 19.3 ml/m\S\2 SV(sp4-el) 41.6 ml SI(sp4-el) 22.2 ml/m\S\2 SV(sp2-el) 29.8 ml SI(sp2-el) 15.9 ml/m\S\2 Doppler Measurements and Calculations MV E max jim 92.7 cm/sec MV A max jim 105.7 cm/sec MV E/A 0.88 MV dec time 0.21 sec Ao V2 max 155.4 cm/sec Ao max PG 9.7 mmHg Ao max PG (full) 3.7 mmHg LV V1 max PG 6.0 mmHg LV V1 max 122.1 cm/sec PA V2 max 110.0 cm/sec PA max PG 4.8 mmHg TR max jim 245.3 cm/sec
[2016-03-03 17:03] LABS: C-REACTIVE PROTEIN 0.37 mg/dl (0-0.29); CKMB/CK RATIO 0.4 (0-3.0)
--- NOTE | 2016-03-03 19:24 | Progress Note ---
Progress Note 03/03/161914 Called by nursing STAT about 1814 that patient was having potential stroke or seizure activity. Upon arrival the patient was lying in bed with her eyes closed. She followed all commands for me. She had tears flowing down her face. Her family at bedside reported the following sequence of events - First, the patient was sitting in bed talking with the family. She then complained of feeling warm and needing to go to the bathroom. Her family then proceeded to accompany her to the bathroom; she then voided w/o difficulty. She continued to have a feeling of warmth and sweatiness even upon return to the bed. Once back in bed she closed her eyes and was slow in responding to questions. She also seemed to have twitching of the head/arm and occasional slurry speech. On my initial exam, her speech was slightly slurred but fluent, but there was no pronator drift, strength was 5/5 x 4 extremities, and there was no facial droop. She continued to complain of facial numbness on the right cheek that extended across the midline to the corner of her mouth on the left. Denied any numbness in the arms/legs. Vitals were stable with mildly elevated BPs. Throughout the extended visit (30+ minutes) she had intermittent head bobbing/ twitching and occasional twitching of her right arm. At any point throughout the visit I could ask her a question and she would immediately answer. There was no loss of consciousness noted. There were at least 2 other times during the encounter that the patient was crying. Telemetry was normal during the encounter (they noted sinus tachycardia about the time she ambulated to the bathroom). No a. fib or dysrhythmia. Upon checking her two other times her neuro exam continued to remain normal. She continued with intermittent head bobbing despite being able to talk through such. I explained to her family that I did not feel she was having a TIA or stroke. Further, I explained that even atypical seizures (such as complex partial seizures) that her symptoms would be odd even for that. With that said, while explaining to the family that ativan would be given if there was strong suspicion of seizures, the patient immediately said "if it's like the clonazepam I don't want it." I recommended we consult neurology in the morning. Will order frequent neuro checks, repeat her EKG, and repeat another set of cardiac enzymes. In the end the patient was agreeable to one dose of IV ativan. Family thoroughly updated at bedside multiple times. Evan Rodriguez MD
[2016-03-03] MEDS ORDERED: LORAZEPAM 2 MG/ML 1 ML VIAL IV STA (19:25)
[2016-03-03] MEDS ORDERED: CLONAZEPAM 0.5 MG TAB PO PRN (21:00)
[2016-03-04 00:01] VITALS: O2SAT 94
[2016-03-04 04:00] VITALS: BP 130/84; PULSE 61; TEMP 36.7; O2SAT 98
[2016-03-04] MEDS: ACETAMINOPHEN 325 MG TAB PO PRN ×2 (04:25→09:08)
[2016-03-04 07:28] VITALS: BP 134/83; PULSE 62; TEMP 36.8; O2SAT 95
--- NOTE | 2016-03-04 08:39 | Neurology Consultation ---
Neurology Consultation Date of Consultation: Mar 04, 2016. Attending Physician: Evan Rodriguez MD Primary Care Physician: Tiarra Martínez C.[email or web address] Reason for Consultation: Patient is a 50-year-old, who was asked to see the request of Dr. Rodriguez, for neurologic consultation regarding new onset numbness and other issues. History of Present Illness Source: patient, caregiver, clinic records, hospital records The patient tells me that she's had a history of headaches since her mid to late her 30s. She has variable types of headaches and recently they occur about once per week. She gets no aura or warning and doesn't really have any triggers for these headaches. She can wake up in the morning with them or get them during the day. She typically does not get an aura and can get pain in variable places. Her 2 main types of headaches tend to be a bifrontal bifacial pressure sensation which she feels is sinus related. The other is a significant left-sided pressure sensation which radiates behind the left eye and his company occasionally by nausea but invariably by photophobia. Excedrin Migraine helps, particularly when she takes it early. On the morning of March 02, 2016, she had a left-sided headache and took an Excedrin. This had some help. She went to work and was driving back around 3: 30 in the afternoon when she noted the onset of tingling in her right cheek. This radiated eventually across the nose and upper lip to the left corner of the mouth. At that time, she did not notice any other symptoms. Throughout the rest of the afternoon the symptoms persisted but in the evening they intensified. She took a clonazepam and within a short time after this, she became lightheaded and woozy and actually had a syncopal episode for several seconds, after standing up. Following this, she had some difficulty getting words out for about 5 minutes. There was no significant head trauma and no seizure activity by this event which was witnessed by her son. The patient tells me that she's had some episodes of numbness on her face in the past but never as prominent as this one. Because of the intense's and new symptoms she came to the emergency room at 0047 hours on March 03. Temperature was 36.9, pulse 98 regular, respiratory rate 20, blood pressure 160/91, and O2 saturation 96%. Neurologic examination was largely unremarkable but at least one examiner felt that she could've had a mild right facial droop. Neuro exam was nonfocal and she had no meningeal signs or encephalopathy. CT scan of the head was unremarkable. Laboratory studies revealed normal CBC, sedimentation rate of 38, normal chem profile except for potassium of 3.3 at a slightly elevated CK 234. Repeat CK later was 187. B-12 was normal at 759. TSH was normal earlier in 2016. Urine drug screen was positive for MDMA, but the patient is on bupropion which is known to produce a false positive Echocardiogram was unremarkable. Carotid ultrasound was unremarkable. MR angiography of the head showed no significant stenoses or aneurysm. MRI of the brain showed no acute stroke and no significant old or other small vessel ischemic disease. Around 1915 hrs. on March 03, the patient was noted to have some slurred speech and twitchiness of her face. The facial numbness was still present but not more prominent. She felt warm and sweaty went to the bathroom and the symptoms intensified. Dr. Rodriguez noted some head bobbing and twitching of the right upper extremity. Neuro exam was unremarkable. She was awake and alert and answered questions continuously throughout the event which lasted 10-15 minutes. She had episodes of crying with tears during this event also. Following this she did well the rest of the night with no further events. This morning, she has slight residual tingling on her cheek but does not extend to her nose or lips. She does not have a headache and does not have other issues. For the last 2-3 year she's had pain intermittently in her neck on the left which radiates down to the index and middle fingers occasionally depending on her head position. Past Medical/Surgical History Medical Problems: (1) Right facial numbness Status: Acute (2) Syncope Status: Acute History of asthma Depression controlled on bupropion Hypertension times many years History of insomnia History of thyroid nodule post partial thyroidectomy 6-8 years ago on no thyroid medication. Post left anterior cruciate ligament repair Post right carpal tunnel syndrome repair Tubal ligation Tonsillectomy and adenoidectomy Family History Mother, age 70 has hypertension and asthma Father, age 71, has no significant medical problems Social History Patient never smoked cigarettes and only rarely has a drink of alcohol. 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 Smoking Status: Never smoker Smokeless Tobacco Use: No Alcohol Use: none Drug Use: none Marital Status: Housing Status: lives with family Occupation Status: employed Allergies Coded Allergies: Iodinated Diagnostic Agents (Verified Allergy, Severe, ANAPHYLAXIS, 03/03/16 ) Iodine (Verified Allergy, Severe, ANAPHYLAXIS AND PASSED OUT, 03/03/16) Sulfa Antibiotics (Verified Allergy, Mild, RASH, 03/03/16) Thiopental (Verified Adverse Reaction, Unknown, DIFFICULTY WAKING UP, ) Current Inpatient Medications Current Inpatient Medications Medications (Trade) Dose Ordered Sig/Mathew Route Start Time Stop Time Status Last Admin Dose Admin Sodium Chloride (Nss 1000ml) 1,000 ml @ 100 mls/hr Q10H IV 03/03/16 12:00 04/02/16 11:59 03/03/16 22:32 100 MLS/HR Enoxaparin Sodium (Lovenox Inj) 40 mg Q24H SC 03/03/16 12:00 04/02/16 11:59 03/03/16 12:00 40 MG Acetaminophen (Tylenol Tab) 650 mg Q4H PRN PO 03/03/16 08:30 04/02/16 08:29 03/04/16 04:25 650 MG Al Hydrox/Mg Hydrox/Simethicone (Maalox Max Susp) 15 ml Q4H PRN PO 03/03/16 08:30 04/02/16 08:29 Magnesium Hydroxide (Milk Of Magnesia Susp) 30 ml Q12H PRN PO 03/03/16 08:30 04/02/16 08:29 Ondansetron HCl (Zofran Inj) 4 mg Q6H PRN IV 03/03/16 08:30 04/02/16 08:29 Polyethylene (Miralax Powder Packet) 17 gm DAILY PRN PO 03/03/16 09:00 04/02/16 08:59 Albuterol (Ventolin Hfa Inhaler) 2 puffs Q4H PRN INH 03/03/16 08:30 04/02/16 08:29 Aspirin (Ecotrin Tab) 81 mg DAILY@1200 PO 03/03/16 12:00 04/02/16 11:59 03/03/16 13:12 81 MG Bupropion HCl (Wellbutrin-Xl Tab) 150 mg DAILY@1200 PO 03/03/16 12:00 04/02/16 11:59 03/03/16 12:00 150 MG Clonazepam (Klonopin Tab) 0.5 mg HS PRN PO 03/03/16 21:00 04/02/16 20:59 Hydralazine HCl (HydrALAZINE INJ) 10 mg Q6 PRN IV. 03/03/16 08:30 04/02/16 08:29 Miscellaneous (Iv Fluids Completed) 1 ea PRN PRN N/A 03/03/16 09:00 03/03/17 08:59 Losartan Potassium (coZAAR TAB) 100 mg DAILY@1200 PO 03/03/16 12:00 04/02/16 11:59 03/03/16 13:25 100 MG Hydrochlorothiazide (Hydrochlorothiazide Tab) 25 mg DAILY@1200 PO 03/03/16 12:00 04/02/16 11:59 03/03/16 13:26 25 MG Review of Systems Constitutional: No fatigue, No weakness Eyes: No diplopia, No worsening of vision ENT: No hearing loss, No tinnitus Respiratory: No cough, No shortness of breath Cardiovascular: No chest pain, No palpitations Abdomen: No diarrhea, No nausea, No pain Musculoskeletal: No joint pain, No muscle pain Genitourinary - Female: No dysuria, No urinary incontinence Neurologic: + numbness/tingling, No balance problems, No memory loss, No vertigo, No weakness Psychiatric: No anxiety, No depression symptoms Endocrine: No fatigue Hematologic / Lymphatic: No abnormal bleeding/bruising Integumentary: No rash Allergic / Immunologic: No hives Physical Exam Vital Signs (Past 24 Hrs): Date Time Temp Pulse Resp B/P Pulse Ox O2 Delivery O2 Flow Rate FiO2 03/04/16 07:28 36.8 62 18 134/83 95 Room Air 03/04/16 04:00 36.7 61 16 130/84 98 Room Air 03/04/16 04:00 98 Room Air 03/04/16 00:01 94 Room Air 03/03/16 23:02 36.9 72 12 142/77 94 Room Air 03/03/16 20:00 93 Room Air 03/03/16 19:38 37.2 72 18 131/84 93 Room Air 03/03/16 17:55 36.7 86 20 146/86 95 Room Air 158/99 166/91 03/03/16 16:00 97 Room Air 03/03/16 15:22 36.8 66 20 134/86 95 Room Air 03/03/16 12:02 37.0 73 18 135/85 96 Room Air 03/03/16 12:00 37.0 67 18 135/85 96 Room Air 03/03/16 12:00 96 Room Air 03/03/16 12:00 96 03/03/16 10:50 71 143/90 03/03/16 09:55 67 139/78 96 Room Air 03/03/16 09:45 36.9 74 16 124/83 Room Air Patient is right-handed. The patient is awake and alert. Speech is normal without aphasia or dysarthria. Mentation and thought processes are intact with orientation and normal fund of knowledge. Mood and affect are normal and appropriate. Appearance and grooming are normal. The discs are sharp with positive venous pulsations. There are no exudates, hemorrhages, or blood vessel changes seen. Pupils are 4mm bilaterally and reactive to light. Extraocular eye muscles are intact without nystagmus. Visual acuity and visual jacobs seem normal grossly to confrontation. There is very slight decreased sensation to touch in the central cheek on the right not extending anywhere else. Corneal reflexes are positive bilaterally. Facial strength and symmetry is normal bilaterally. I note no facial droop today. Hearing seems intact grossly to voice and finger rub. Palate moves well without asymmetry. There is normal sternocleidomastoid and trapezius strength bilaterally. Tongue is midline with good strength bilaterally. Neck is with full range of motion without discomfort. There are no cervical bruits. There are no cranial or ocular bruits. Heart is without murmur. Cervical, thoracic, and lumbar spine are nontender to palpation. Gait is normal. There is good are swing, turn, stance, and balance. With outstretched arms there is no drift. There are no resting, postural, or action tremors. There is no ataxia with [id number] testing. There is good facility in the hands. There are no abnormal involuntary movements noted. Motor strength is 5/5 diffusely in the arms bilaterally including deltoids, biceps, brachioradialis, wrist flexors and extensors, advertising sales representative, and intrinsic hand muscles. Motor strength is 5/5 diffusely in the legs bilaterally including hip flexors, quadriceps, hamstring, gastrocnemius, tibialis anterior, tibialis posterior, and peroneii muscles bilaterally. Toe extensors are normal and there is good bulk in the extensor digitorum brevis muscle bilaterally. The limbs have good tone without rigidity or spasticity, and there is no atrophy noted. Muscle bulk is normal, there is no tenderness, no myotonia noted to percussion, and no fasciculations seen. Sensory examination is intact to pin and touch throughout all four limbs. Reflexes are 2/4 in the biceps, triceps, brachioradialis, quadriceps, and Achilles tendons bilaterally. Toes are downgoing with plantar stimulation bilaterally. Peripheral pulses are present and of normal quality distally in all four limbs. There is no peripheral edema noted. Laboratory Results Past 24 Hours: Test 03/03/16 10:08 03/03/16 16:20 03/03/16 17:56 03/03/16 19:59 Magnesium Level 2.3 mg/dl (1.8-2.4) Vitamin B12 Level 759 pg/mL (211-911) Total Creatine Kinase 187 U/L (26-192) Creatine Kinase MB 0.8 ng/ml (0.5-3.6) Creatine Kinase MB Ratio 0.4 (0-3.0) C-Reactive Protein 0.37 mg/dl (0-0.29) Bedside Glucose 122 mg/dl (70-90) Troponin I 0.016 ng/ml (0-0.045) Prolactin 8.06 ng/mL Imaging MRI OF THE BRAIN WITHOUT CONTRAST CLINICAL HISTORY: Syncope, right facial numbness, hypertension. COMPARISON STUDY: CT scan the head dated 03/03/2016 FINDINGS: Sagittal T1, axial diffusion, proton density and T2 weighted axial, coronal FLAIR, and axial T1-weighted images were acquired. No intra or extra-axial mass lesions are visualized Axial diffusion-weighted images reveal no evidence of acute or subacute infarction. There is no evidence of ventricular dilatation. Proton density T2-weighted and FLAIR images reveal no significant intraparenchymal signal abnormalities. There are no abnormal flow voids. There are minor inflammatory changes within the ethmoid sinuses. There is a small midline scalp nodule. IMPRESSION: No acute intracranial findings. No evidence of acute or subacute infarction. No evidence of intracranial mass. Electronically signed by: Lito Marshall M.D. 03/03/2016 2:13 PM MR ANGIOGRAPHY OF THE [place] NO CONTRAST CLINICAL HISTORY: Right facial numbness. Pelvis and right. Possible vasculitis. Syncope. COMPARISON STUDY: None. A 3-D [id number] MR angiographic sequence of the [place] was performed. Both the source and projection images were reviewed. There is no evidence of major intracranial branch occlusion. There is no evidence of intracranial stenosis. There are no lesions suspicious for aneurysm. IMPRESSION: Unremarkable MR angiography of the [place]. No MR angiographic evidence of intracranial vasculitis Electronically signed by: Lito Marshall M.D. 03/03/2016 2:05 PM BILATERAL CAROTID DOPPLER STUDY HISTORY: Stroke. Change in mental status. Syncope COMPARISON: None. TECHNIQUE: Real-time, grayscale, and color Doppler sonography of the carotid arteries was performed. Imaging reviewed in the transverse and longitudinal planes. All measurements were calculated based on NASCET criteria. FINDINGS: Antegrade flow is seen in the bilateral vertebral arteries. The brachial pressures are hemodynamically similar. The peak systolic velocity within the right ICA is 69. The right systolic ratio is 0.6. The peak systolic velocity within the left ICA is 79. The left systolic ratio is 0.9. IMPRESSION: No hemodynamically significant stenosis seen within the carotid arteries. Electronically signed by: Eduin Fish M.D. 03/03/2016 9:16 AM Impression 1. Protracted episode of right facial tingling and numbness, crossing midline to the left, accompanied by a headache and other symptoms as outlined above. All this is associated with elevated blood pressure. I believe this is most consistent with vasospasm and a "complicated" migraine. This can be triggered by the high blood pressure and can be associated with the type of symptoms this patient displays. Symptoms can persist for several days even after the headache is resolved, in my experience. There is no evidence for stroke. I do not believe her symptoms are consistent with a TIA or other standard vascular event. There is noticed to suggest seizure disorder. Currently the patient is doing well with minimal symptoms and some very slight residual right facial tingling/numbness in the cheek 2. Hypertension, not adequately controlled. The patient had an episode of presumed syncope evening prior to admission. This may have been due to hypotension/orthostasis after she took clonazepam 3. History of depression, fairly well controlled on bupropion Certainly, mood issues could be contributing to the symptomatology above but I don't believe it is the primary cause. 4. Positive MDMA urine toxicology screen, with bupropion well known to cause false positives and this test 5. History of chronic intermittent neck pain and left upper extremity radicular symptomatology, most consistent with a C6 distribution. Plan 1. Consider verapamil SR 180 mg each morning for blood pressure control and vasospasm prevention. This is my drug of choice for complicated migraines particularly with a history of hypertension 2. I see no reason to obtain any other neurologic testing at this time 3. Stay on 81 mg aspirin tablet daily. I see no reason to switch to clopidogrel or any other antiplatelet treatment 4. Avoid benzodiazepine usage if possible I've spoken to Dr. Rodriguez regarding his case, including differential diagnosis and treatment options. Please contact me if I can be of further assistance on this case. I am happy to follow this patient as an outpatient if desired.
[2016-03-04] MEDS ORDERED: VERAPAMIL HCL 120 MG TABCR PO SCH (09:30)
[2016-03-04] MEDS ORDERED: ONDANSETRON INJ 2 MG/ML 2 ML VIAL IV STA (10:30)
[2016-03-04] MEDS ORDERED: KETOROLAC TROMETHAMINE 30 MG/ML VIAL IV STA (10:30)
[2016-03-04 11:17] VITALS: BP 132/84; PULSE 65; TEMP 36.7; O2SAT 97
[2016-03-04] MEDS ORDERED: VERA120T65 PO (13:27)
[2016-03-04] MEDS ORDERED: METHYLPREDNISOLONE IV 60 MG in SYRINGE 0 ML IV ONE (13:30)
--- NOTE | 2016-03-04 13:42 | Discharge Instructions ---
Discharge Instructions Admission Reason for Admission: Syncope (Maranda Adam PA-C) Discharge Discharge Diagnosis / Problem: Complicated Migraine; Syncope (Maranda Adam PA-C) Discharge Goals Goal(s): Improve function, Improve disease control, Learn about illness (Maranda Adam PA-C) Activity Recommendations Activity Limitations: as noted below Lifting Limitations: gradually increase as tolerated Exercise/Sports Limitations: gradually increase as tolerated May Resume Sexual Activity: when tolerated Shower/Bathe: no limitations . (Maranda Adam PA-C) Instructions / Follow-Up Instructions / Follow-Up Syncope (Passed Out): - While admitted we did numerous tests that did not reveal an acute issue with your brain. - Imaging did not show any evidence of a stroke or bleeding in the brain. Vessels that supply blood to your brain were good as well. - We also looked at your heart through EKGs and blood work and this event does not appear to be related to your heart as everything looks good there. - We looked at your heart with an ultrasound and it is pumping adequately and does appear to be an issue for passing out. - It is likely that the extra dose of Clonazepam may have caused you to have an episode of decreased blood pressure that caused you to pass out. - We would advise that you avoid using Clonazepam if possible to prevent further issues like this. - Discuss with your family doctor about possible other options to replace the Clonazepam. Facial Numbness: - In the process of evaluating for the passing out episode, imaging did not find a direct cause for the numbness of the face. - Discussed with Neurology who questions spasms and complicated migraines that could be contributed to your symptoms - We will give you a prescription for Verapamil 120 mg to take one tablet daily. -- You did receive a dose in hospital and it seems to have been tolerated well -- This is a new medication for you so watch for any signs of an allergy such as itching, rash, or shortness of breath/lip swelling (which is rare) -- This medication is also good for blood pressure which will be an added benefit since your blood pressure has been above normal. -- Watch for dizziness or lightheadedness when taking this medication. When changing positions go slowly to help reduce dizziness. - You may continue to use Excedrin Migraine as needed for headache symptoms. - Please discuss with your family doctor to continue to follow for your headaches. High Blood Pressure: - Continue your home medications as prescribed - As mentioned above Verapamil will help with migraines and help control your blood pressure Home Medications: - Continue home medications as prescribed. Any questions about medications please discuss with family doctor - Recommend limiting the use of Clonazepam if possible Follow-Up: - Please see your family doctor in 5-7 days to monitor response of Verapamil. Reasons to Return: - Please return if you develop slurred speech or arm/leg weakness. - Please return for any signs or symptoms of an allergic reaction as described above. (Maranda Adam PA-C) Current Hospital Diet Patient's current hospital diet: Regular Diet (Maranda Adam PA-C) Discharge Diet Recommended Diet: Regular Diet (Maranda Adam PA-C) Pending Studies Studies pending at discharge: no (Maranda Adam PA-C) Medical Emergencies . Who to Call and When: Medical Emergencies: If at any time you feel your situation is an emergency, please call 911 immediately. . (Maranda Adam PA-C) Non-Emergent Contact Non-Emergency issues call your: Primary Care Provider Call Non-Emergent contact if: you have a fever, your pain is not controlled, your pain is unusual for you, your pain is concerning you, you have any medication questions . (Maranda Adam PA-C) . "Provider Documentation" section prepared by Maranda Adam. (Maranda Adam PA-C) Attending Attestation: I was present with FRANK Adam on the day of the patient's discharge and I agree with her discharge instructions as outlined. Evan Rodriguez MD (Evan Rodriguez MD) VTE Core Measure Inpt VTE Proph given/why not?: Enoxaparin (Lovenox)SQ (Maranda Adam PA-C)
[2016-03-04 14:00] VITALS: BP 132/84; PULSE 65; TEMP 36.7; O2SAT 97
[2016-03-04] MEDS: LOSARTAN POTASSIUM 50 MG TAB PO SCH (14:09)
[2016-03-04] MEDS: BuPROPion XL 300 MG TABCR PO SCH (14:10)
[2016-03-04] MEDS: HYDROCHLOROTHIAZIDE 25 MG TAB PO SCH (14:10)
[2016-03-04] MEDS: ASPIRIN 81 MG ECTAB PO SCH (14:11)
[2016-03-04 14:52] VITALS: BP 130/85; PULSE 76
--- NOTE | 2016-03-04 17:32 | Discharge Summary ---
Discharge Summary Admission Date: Mar 03, 2016 at 08:37 Discharge Date: Mar 04, 2016 Discharge Disposition: Home Principal Diagnosis: Syncope; Complicated Migraine Problems/Secondary Diagnoses: 1. Essential Hypertension 2. Anxiety/Depression 3. Asthma Immunizations: Have You Had Influenza Vaccine: No History of Tetanus Vaccine?: Yes History of Pneumococcal: No History of Hepatitis B Vaccine: No Consultations: 1. Neurology (Maranda Adam PA-C) Medication Reconciliation New Medications: Verapamil HCl (Verapamil HCl ER) 120 Mg Tabcr 120 MG PO QAM, #30 Continued Medications: Albuterol (Ventolin) Inh 2 PUFFS INH DIRECTED for 5 Days, INHALER Aspirin (Aspirin Ec Lo-Dose) 81 Mg Tab 81 MG PO NOON Bupropion (Wellbutrin-Xl) 300 Mg Tabcr 150 MG PO NOON, TAB Clonazepam (Klonopin) 0.5 Mg Tab 0.5 MG PO HS PRN for Sleep, TAB Clonidine HCl (Clonidine HCl) 0.1 Mg Tab 1 TAB PO DAILY PRN for Hypertension Losartan Potassium & Hydrochlo (Losartan Potassium/Hydroc) 1 Tab Tab 1 TAB PO NOON pt taking 100-25mg Multiple Vitamin (Multivitamin) 1 Tab Tab 1 TAB PO NOON, TAB Discontinued Medications: Lorazepam (Ativan) 0.5 Mg Tab 0.5 MG PO DIRECTED, TAB Discharge Exam Review of Systems: Constitutional: + problem reported (resolving headache located at forehead and L side of head), No chills, No fever Eyes: No worsening of vision ENT: + problem reported (resolving R cheek numbness), No nasal symptoms, No sore throat, No trouble swallowing Respiratory: No cough, No shortness of breath Cardiovascular: No chest pain Abdomen: No constipation, No diarrhea, No nausea, No pain, No vomiting Musculoskeletal: No calf pain, No swelling Genitourinary - Female: No dysuria Neurologic: + numbness/tingling (resolving facial numbness limited to R cheek at current time) Endocrine: No fatigue Hematologic / Lymphatic: No abnormal bleeding/bruising Integumentary: No itch, No rash Physical Exam: General Appearance: WD/WN, no apparent distress Eyes: PERRL, EOMI, sclerae normal ENT: hearing grossly normal Neck: supple, no JVD, trachea midline Respiratory/Chest: lungs clear, normal breath sounds, no respiratory distress, no accessory muscle use Cardiovascular: regular rate, rhythm, no gallop, no murmur Abdomen / GI: normal bowel sounds, non tender, soft Extremities: normal inspection, no calf tenderness, no pedal edema Neurologic/Psychiatric: alert, oriented x 3, + pertinent finding (no motor deficits appreciated; subjective numbness of R cheek compared to left; facial movements symmetrical) Skin: normal color, warm/dry (Maranda Adam, HARVEY) Hospital Course ADMISSION: Ms. Hawkins is a 50 y/o female with PMHx of HTN, Anxiety/Depression, and Asthma who presents to the ED c/o R facial numbness that started at 1530 on 03/02/16 and syncope with collapse. She states she was driving when this sensation started. It is located in the R cheek and extends across the upper lip and down to the L mandible. She states she has had similar complaints in the past but they have not been this severe. She denies trauma or injury to the face. Reports history of cervical neck discomfort that has been minimally worked up in the past and reports intermittent radiculopathy of the L down to the fingers. When she returned home she took half a tablet of Clonazepam which improved the symptoms minimally. She called her PCP who instructed her to take another 1/2 tablet of Clonazepam. She states this was approx half hour from the first dose and almost immediately had a witnessed syncopal episode. She states she felt unsteady on her feet and her son caught her. She did not hit her head. She came to almost instantaneously but states she felt confused and "I felt like I couldn't move my mouth". She does report recent illness of a sore throat , intermittent low grade fever, and productive cough x 1 week that has been improving but a minimal cough remains. Associated mild headache described as dull and diffuse. She has had headaches in the past but has never been diagnosed with Migraines. Reports initial blurry vision after syncopal episode that resolved. She reports muscle cramping that started after IV fluids in ED. She denies current fever/chills, CP, SOB, abdominal pain, N/V, dysuria, constipation/diarrhea. In the ED, she was hydrated and given ASA [address] without acute intracranial findings. Calcium WNL. Potassium mildly low at 3.3. Drug screen positive for Ecstasy however on Wellbutrin. She will be admitted to telemetry obs for further evaluation and care. HOSPITAL COURSE: Syncope with Collapse with R Facial Numbness: Probable Complicated Migraine - Assessment - Consideration for CVA/TIA vs ACS/Cardiac vs Migraine vs Anxiety considered - R facial numbness from R cheek extending across upper lip and down to L mandible that has been progressively improving. Symptoms present in setting of headache located as a band across forehead and in L side of head that was more sharp in nature. Patient reports headache was improving prior to discharge and mostly remained in forehead region - Acute Events: On 03/03/16 at approx. 1815 patient was noted to be crying and diaphoretic with slowed speech and intermittent slurred speech. Patient was evaluated by Dr. Olsen and it was noted patient to have a head bobbing and R arm twitching however no focal deficits. Speech was fluent and responses appropriate without delay. No facial droop was noted. Patient initially reluctant to take Ativan but ultimately did take a dose. Social stressors noted per family discussion. - Imaging and Studies -- Head CT - no acute intracranial findings -- Head MRI - no acute intracranial findings or masses -- Head MRA - no evidence of vasculitis in setting of mildly elevated ESR of 38 -- Carotid U/S - no hemodynamic significant stenosis -- Serial cardiac enzymes unremarkable -- Echo - EF 60-65% with grade I diastolic dysfunction noted - Possibly resulting for Clonazepam with episodic hypotension? - Advised patient to limit benzodiazepine usage if possible - Consultation with Neurology that recommended Verapamil for Vasospasm and Complicated Migraine with additional benefit of HTN control - D/C'd on Verapamil 120 mg daily HTN: - Continue Losartan/HCTZ daily - Added benefit of Verapamil on HTN as it is minimally controlled on Losartan/ HCTZ alone Anxiety/Depression: - Patient reports that she does not take Ativan only Clonazepam - Advised patient to avoid benzodiazepines if possible - Continue Wellbutrin 150 mg daily - May benefit from outpatient therapy in setting of social stressors in addition to medication use Disposition: - Patient is stable and voices no acute complaints. She is optimal for discharge home with PCP follow-up in 5-7 days Total Time Spent: Greater than 30 minutes This includes examination of the patient, discharge planning, medication reconciliation, and communication with other providers. (Maranda Aadm, PA-C) Attending Attestation: Pt seen/examined, and discharge plan d/w FRANK Adam on the day of discharge. I agree with the hernandez components of her discharge summary. 50yo female with HTN, asthma, anxiety, and depression who presented with right lower facial numbness that crossed the midline to the vermilion border of the left side of the mouth. This was in the setting of a syncopal episode as well as frontal headache. The syncopal episode occurred sometime after taking klonipin. Family also reported slowed and slurred speech. Following admission the facial numbness gradually improved. She underwent an extensive work-up including CT head, MRI brain, MRA head, carotid duplex, echocardiogram, and telemetry. All studies were normal. She had an acute episode during her stay of head bobbing, right arm twitching, and slowed speech as noted by Kia above but was felt NOT to represent an atypical seizure, TIA, or stroke. Neurology was consulted who felt that the symptoms may have been due to complicated migraine. Psychosocial stressors may have made the symptoms worse as well. She was started on verapamil prior to discharge for treatment of chronic headaches and HTN. Acute headache did improve with use of NSAIDs and IV steroids. Discharge exam - gen - NAD, a/o x 3, speech fluent neck - no JVD mouth - MMM heart - RRR, s1, s2, no murmur lungs - CTA b/l abd - soft, NT, ND, BS+ ext - no edema neuro - strength 5/5 x 4 exts; no facial droop; CN 3-12 intact; gait normal psych - restricted affect; anxious at times Evan Rodriguez MD (Evan Rodriguez MD) Discharge Instructions Please refer to the electronic Patient Visit Report (Discharge Instructions) for additional information. (Maranda Adam, HARVEY) Additional Copies To Lenore Alvarado; Tiarra Martínez C.R.[email or web address]
[2016-03-19] MEDS ORDERED: VERA120T15 PO (10:20)
[2016-03-19] MEDS ORDERED: MELATAB2 PO (10:20)
[2016-03-19] MEDS ORDERED: FLUT0.15 NAE (10:21)
[2016-03-19] MEDS ORDERED: FEXO1TAB49 PO (10:21)
[2016-03-19] MEDS ORDERED: EXCETAB42 PO (10:21)
[2016-03-19] MEDS ORDERED: SENNTAB23 PO (10:35)
[2016-03-19] MEDS ORDERED: CALC500C3 PO (10:35)
== END 2016-03-04 15:16 | disposition home or self-care (01) ==
LOC: ENRESERVDT → ENRESERVTM → C.EDB 00:46 → C.2T 08:37
PROVIDERS: ADMIT Internal Medicine; ATTEND Internal Medicine
DX: R55 Syncope and collapse (principal); R20.0 Anesthesia of skin; G43.109 Migraine with aura, not intractable, without status migrainosus; F32.9 Major depressive disorder, single episode, unspecified; J45.909 Unspecified asthma, uncomplicated; Z79.82 Long term (current) use of aspirin; I10 Essential (primary) hypertension; Z88.2 Allergy status to sulfonamides; Z91.041 Radiographic dye allergy status; Z86.73 Personal history of transient ischemic attack (TIA), and cerebral infarction without residual deficits; Z82.49 Family history of ischemic heart disease and other diseases of the circulatory system; Z82.5 Family history of asthma and other chronic lower respiratory diseases

== ENCOUNTER → 2016-03-17 | Outpatient (CLI) | payer OTHER ==
[~2016-03-17] MED LIST changes: +ACET-1256 PO; +CALC500C3 PO; +EXCETAB42 PO; +FEXO1TAB49 PO; +FLUT0.15 NAE; -LORA-741 PO; +LOSA100T26 PO; -LOSA100T33 PO; +MELATAB2 PO; +SENNTAB23 PO; +VERA120T15 PO; +VERA120T65 PO
--- NOTE | 2016-03-18 14:25 | MAMMOGRAPHY REPORT ---
BILATERAL DIGITAL SCREENING MAMMOGRAM TOMOSYNTHESIS WITH CAD: 03/17/2016 CLINICAL HISTORY: Routine screening. Patient has no complaints. TECHNIQUE: Breast tomosynthesis in addition to standard 2D mammography was performed. Current study was also evaluated with a Computer Aided Detection (CAD) system. COMPARISON: Comparison is made to exams dated: 03/14/2015 mammogram, 03/09/2013 mammogram, 03/23/2013 m ammogram, 03/08/2012 mammogram - [facility], 03/02/2008, and 03/04/2009 mammogram - [facility]. BREAST COMPOSITION: The tissue of both breasts is almost entirely fatty. FINDINGS: No suspicious mass, architectural distortion or cluster of microcalcifications is seen. IMPRESSION: ACR BI-RADS CATEGORY 1: NEGATIVE There is no mammographic evidence of malignancy. A 1 year screening mammogram is recommended. The p atient will receive written notification of the results. Approximately 10% of breast cancers are not detected with mammography. A negative mammographic repor t should not delay biopsy if a clinically suggestive mass is present. No lyon/esme:03/17/2016 22:01:44 Equipment Services Associate: Moreno MARADIAGA(Jerry)(M), [facility] letter sent: Normal 1/2 BI-RADS Code: ACR BI-RADS Category 1: Negative
== END | disposition home or self-care (01) ==
LOC: C.MAMM 09:25
PROVIDERS: ATTEND Obstetrics & Gynecology
DX: Z12.31 Encounter for screening mammogram for malignant neoplasm of breast (principal)

== ENCOUNTER 2016-03-27 05:39 | Inpatient (IN) | payer OTHER ==
--- NOTE | 2016-03-09 16:55 | HISTORY & PHYSICAL EXAMINATION ---
DATE OF ADMISSION: 03/27/2016 CHIEF COMPLAINT: Right-sided ovarian tumor, uterine fibroid. HISTORY OF PRESENT ILLNESS: The patient is a 50-year-old 4, para 2 who has had 2 spontaneous ABs. Her general health is complicated by asthma, high blood pressure and migraines, mild depression. She is on baby aspirin daily, Wellbutrin extended release 150 mg daily, Flonase 0.5 mg a day, Losartan 10/25 and a Ventolin inhaler p.r.n. She underwent menopause in December 2014, has had off and on spotting since then and then had a full 3-week period, starting August 2015, this period led to ultrasound evaluation which showed a 4-5 cm fibroid and a left adnexal mass 6.9 x 5.8 x 6.7 cm. Subsequent to this, she had a repeat ultrasound about 4 months later, the mass was present, did not decrease in size and she subsequently had an endometrial biopsy in the office which showed benign endometrial tissue. She is presently being scheduled for TAHBSO. PAST MEDICAL HISTORY: SHE IS ALLERGIC TO CT CONTRAST MEDIUM AND SODIUM PENTOTHAL. PAST MEDICAL HISTORY: She has 2 children in good health. She has previously stated medical history of asthma, high blood pressure, migraines, and mild depression. PAST SURGICAL HISTORY: She had a tonsillectomy and adenoidectomy. She had a diagnostic laparoscopy for endometriosis over 20 years ago. She had her left thyroid removed. She had an ACL repair of left knee. She had meniscus done both knees. She had a ganglion cyst, right hand; oral surgery and a tubal ligation. SOCIAL HISTORY: No smoking. No excessive alcohol intake. She is presently employed. FAMILY HISTORY: Mom 70 in good health, dad 71 in good health; 2 brothers and 1 sister in good health. REVIEW OF SYSTEMS: She has had migraine headaches for the past 6 years. She was recently hospitalized for 3 days when she had symptoms of a stroke which apparently was due to a migraine. PHYSICAL EXAMINATION: GENERAL: Well developed, well-nourished 50-year-old white female, alert, oriented x3 and cooperative in no acute distress, appears her stated age. EYES: Conjunctivae are pink. Sclerae white. No evidence of jaundice. EARS: Had normal light reflex bilaterally. NOSE: Had normal mucosa. Septum is midline. There were no polyps. THROAT: No erythema or evidence of infection. Teeth are in a good state of repair. HEAD: Normocephalic, normal distribution of hair. NECK: Supple. Trachea midline. Thyroid is not enlarged. There is no adenopathy appreciated. Both carotids are of good intensity. CHEST: Clear to auscultation and percussion. No wheezes, rales or rhonchi appreciated. HEART: Had regular rhythm. S1 and S2 are normal. BREASTS: Normal. ABDOMEN: Soft and nontender. PELVIC: Revealed a right adnexal fullness and the uterine enlargement of about 8-9 weeks. MUSCULOSKELETAL: Revealed no calf tenderness. IMPRESSIONS OF THIS CASE: Status post T\T\A, status post laparoscopy, status post tubal ligation, status post partial thyroidectomy, status post anterior cruciate ligament repair, status post meniscus repair, status post oral surgery, status post removal of ganglion cyst and right-sided ovarian tumor and uterine fibroid. MTDD
[2016-03-19 10:22] VITALS: BMI 36.0
--- NOTE | 2016-03-19 11:16 | PAT Medication Instructions ---
Service Date Mar 19, 2016. Current Home Medication List Albuterol (Ventolin), 2 PUFFS INH DIRECTED PRN for PRN Aspirin (Aspirin Ec Lo-Dose), 81 MG PO QAM Bupropion (Wellbutrin-Xl), 150 MG PO QAM Calcium Carbonate (Tums), 1-2 TAB PO PRN Clonazepam (Klonopin), 0.5 MG PO HS PRN for Sleep Clonidine HCl (Clonidine HCl), 1 TAB PO DAILY PRN for Hypertension Fexofenadine Hcl (Luzma Allergy), 1 TAB PO PRN Fluticasone Propionate (Nasal) (Flonase Allergy Relief), 2 SPRAYS CAIO QAM PRN for RN Losartan Potassium & Hydrochlo (Losartan Potassium/Hydroc), 1 TAB PO QPM Melatonin (Melatonin Maximum Strengt), 15 TAB PO HS PRN for PRN Sennosides-Docusate Sodium (Stool Softener), 1 TAB PO QAM Verapamil (Calan), 120 MG PO QAM [Excedrin], 1 TAB PO PRN Medication Instructions For Your Scheduled Surgery Aspirin (Aspirin Ec Lo-Dose), 81 MG PO QAM (patient will check with surgeon for instructions) Excedrin, 1 TAB PO PRN (patient will check with surgeon for instructions) - Hold the following medications evening prior to surgery: Losartan Potassium & Hydrochlo (Losartan Potassium/Hydroc), 1 TAB PO QPM - Hold the following medications the morning of surgery: Sennosides-Docusate Sodium (Stool Softener), 1 TAB PO QAM Fexofenadine Hcl (Luzma Allergy), 1 TAB PO PRN Calcium Carbonate (Tums), 1-2 TAB PO PRN - Take the following medications the morning of surgery with a sip of water: Verapamil (Calan), 120 MG PO QAM Tylenol (if needed) Fluticasone Propionate (Nasal) (Flonase Allergy Relief), 2 SPRAYS CAIO QAM PRN for RN Clonidine HCl (Clonidine HCl), 1 TAB PO DAILY PRN for Hypertension Bupropion (Wellbutrin-Xl), 150 MG PO QAM Albuterol (Ventolin), 2 PUFFS INH DIRECTED PRN for PRN (bring with you to hospital on day of surgery) - Take the following medications as scheduled the night before surgery: Melatonin (Melatonin Maximum Strengt), 15 TAB PO HS PRN for PRN Tylenol (if needed) Clonazepam (Klonopin), 0.5 MG PO HS PRN for Sleep Albuterol (Ventolin), 2 PUFFS INH DIRECTED PRN for PRN If you have any questions please call us at [phone] or [phone] ( Ora) or [phone]
[2016-03-19 12:29] LABS: CREATININE 0.74 mg/dl (0.60-1.20); POTASSIUM 4.1 mmol/L (3.5-5.1)
[2016-03-27] VITALS (9 sets, daily range): BP systolic 137–166; BP diastolic 82–96; PULSE 65–83; TEMP 36.5–36.9; O2SAT 93–97; Ht 157.5 cm; Wt 89.2 kg
[~2016-03-27] VITALS: Ht 157.5 cm; Wt 89.2 kg
[~2016-03-27 05:39] MED LIST changes: -ACET-1256 PO; -MULTTAB58 PO; -VERA120T65 PO
[2016-03-27] MEDS ORDERED: LACTATED RINGER'S 1000ML 1,000 ML IV SCH (06:00)
[2016-03-27] MEDS ORDERED: CEFOXITIN IV 2,000 MG in DEXTROSE 5% 50ML 50 ML IV SCH (06:00)
[2016-03-27] MEDS ORDERED: ACET-1256 PO (06:21)
[2016-03-27] MEDS ORDERED: LIDOCAINE HCL 2% 2 ML VIAL (20MG/ML) ONE (07:06)
[2016-03-27] MEDS ORDERED: GLYCOPYRROLATE INJ 0.2 MG/ML VIAL ONE (07:06)
[2016-03-27] MEDS ORDERED: PROPOFOL IV EMULSION 10 MG/ML 20 ML VIAL IV ONE (07:06)
[2016-03-27] MEDS ORDERED: ONDANSETRON INJ 2 MG/ML 2 ML VIAL ONE (07:06)
[2016-03-27] MEDS ORDERED: DEXAMETHASONE SOD INJ 4 MG/ML VIAL ONE (07:06)
[2016-03-27] MEDS ORDERED: NEOSTIGMINE METHYLSULFATE 5 MG/5 ML SYR ONE (07:06)
[2016-03-27] MEDS ORDERED: ROCURONIUM BROMIDE 10 MG/ML 5 ML VIAL ONE ×2 (07:06→10:01)
[2016-03-27] MEDS ORDERED: FENTANYL CITRATE INJ 50 MCG/1 ML 2 ML VIAL ONE ×2 (07:07→09:22)
[2016-03-27] MEDS ORDERED: MoRPHine SULFATE PF 1 MG/ML 10 ML AMP/VIAL ONE (07:07)
[2016-03-27] MEDS ORDERED: MIDAZOLAM HCL 1 MG/ML 2ML VIAL ONE (07:07)
--- NOTE | 2016-03-27 07:13 | History & Physical Bridge Note ---
H&P Re-Evaluation Bridge Note: I have examined the patient, reviewed the History & Physical and in the interval since the performance of the History & Physical I have noted the following changes of clinical significance: No changes noted
[2016-03-27] MEDS ORDERED: KETAMINE HCL INJ 50 MG/ML 10 ML VIAL ONE (07:58)
[2016-03-27] MEDS ORDERED: EpHEDrine SULFATE INJ 50 MG/ML AMP IV PRN (08:30)
[2016-03-27] MEDS ORDERED: HYDROmorphone INJ 1 MG/ML SYR IV PRN (08:30)
[2016-03-27] MEDS ORDERED: ATROPINE SULFATE 0.1 MG/ML 5ML SYR IV PRN (08:30)
[2016-03-27] MEDS ORDERED: ONDANSETRON INJ 2 MG/ML 2 ML VIAL IV PRN ×2 (08:30→11:15)
[2016-03-27] MEDS ORDERED: METHYLENE BLUE 1% 10 ML VIAL ONE (09:13)
[2016-03-27] MEDS: FENTANYL CITRATE INJ 50 MCG/1 ML 2 ML VIAL IV PRN ×4 (11:09→11:24)
[2016-03-27] MEDS ORDERED: CLONAZEPAM 0.5 MG TAB PO PRN (11:15)
[2016-03-27] MEDS ORDERED: FLUTICASONE PROPIONATE NA SPR 16 GM BTL NAE PRN (11:15)
[2016-03-27] MEDS ORDERED: MAGNESIUM HYDROXIDE SUSP 30 ML UDC PO PRN (11:15)
[2016-03-27] MEDS ORDERED: MEPERIDINE HCL 75 MG/ML CARP IV PRN (11:15)
[2016-03-27] MEDS ORDERED: CLONIDINE HCL 0.1 MG TAB PO PRN (11:15)
[2016-03-27] MEDS ORDERED: BISACODYL 10 MG SUPP PR PRN (11:15)
[2016-03-27] MEDS ORDERED: SENNA 8.6 MG TAB PO PRN (11:15)
[2016-03-27] MEDS ORDERED: MEPERIDINE HCL 50 MG/ML CARP IV PRN (11:15)
[2016-03-27] MEDS ORDERED: MELATONIN PO PRN (11:15)
--- NOTE | 2016-03-27 11:16 | [facility] Post Operative Brief Note ---
Immediate Operative Summary Operative Date Mar 27, 2016. Pre-Operative Diagnosis Right Sided Ovarian Tumor, Abnormal Menses, Uterine Fibroid Post-Operative Diagnosis Left Sided Ovarian Tumor, Abnormal Menses, Uterine Fibroid Procedure(s) Performed Total Abdominal Hysterectomy, Bilateral Salpingo-oopherectomy Surgeon Dr. Ramsay Estimated Blood Loss 250 ML Findings ovarian tumor fibroid Specimens A. Left Ovary, Tube and Tumor B. Uterine Fibroid C. Cervix, Uterus, Right Tube and Ovary Complication(s) None Disposition Recovery Room / PACU
[2016-03-27] MEDS: HYDROmorphone INJ 1 MG/ML SYR IV PRN ×8 (11:29→12:10)
[2016-03-27] MEDS ORDERED: ACETAMINOPHEN 1000 MG/100 ML IV IV ONE ×2 (11:34→11:45)
[2016-03-27] MEDS ORDERED: KETOROLAC TROMETHAMINE 30 MG/ML VIAL ONE (11:53)
--- NOTE | 2016-03-27 12:14 | OPERATIVE REPORT ---
DATE OF OPERATION: 03/27/2016 This is an operative notation of a total abdominal hysterectomy, bilateral salpingo-oophorectomy. PREOPERATIVE DIAGNOSIS: Right-sided ovarian tumor. POSTOPERATIVE DIAGNOSES: Left-sided ovarian tumor 7-8 cm, left-sided uterine fibroid. Tubes status post tubal ligation. SURGEON: Dr. Ramsay. CONSTRUCTION PRODUCER: Dr. Munoz. ESTIMATED BLOOD LOSS: 250 mL. ANESTHESIA: General. OPERATIVE FINDINGS AND PROCEDURE: The patient was brought to the OR table, correctly identified by armband and conversation. Several attempts were used to instill spinal narcotics, they were unsuccessful. The patient then underwent general anesthesia. Perineum and vagina were painted with Betadine paint and the Lacy catheter was inserted aseptically in the bladder connected to gravity drainage. Lower abdomen was scrubbed with a sterilizing solution, draped in the usual sterile fashion. A Pfannenstiel incision was made and carried down to the anterior fascia by sharp dissection. Hemostasis was secured by electrocauterization. Fascia was incised transversely from the underlying muscle. The recti muscle was in the midline. Peritoneum was carefully raised and entered. An O'Castillo-O'Weber self-retaining retractor was inserted into the incision and several moist laparotomy packs were used to retract the intestines and provide adequate exposure of the pelvic cavity. At this time, there was a fairly large ovarian tumor that looked thin walled and it actually arose from the left ovary. We carefully removed this tumor by cutting off the blood supply with 2 separate sutures and doubly ligating them and clamping the tumor with a Keyanna and then cutting it free and removing it unruptured. After this, we identified the infundibulopelvic ligament on the left side, doubly ligated that and identified the infundibulopelvic ligament on the right side, doubly ligated that. Ligated the round ligaments on each side doubly, then clamped them close to the uterus, then did a transfixion suture of chromic catgut to tag them and cut them free. We made an incision above the vesicouterine fold and advanced the bladder. There was a fibroid on the left side that was right on the side of the uterus and right where the uterine vein and artery is and it went down fairly far around the cervix. I cut the peritoneum over the fibroid and it basically attempted to push the peritoneum down and enucleate the fibroid, but did run into some bleeding probably toward the uterine vein below the fibroid and I eventually removed the fibroid, clamped the uterine vein got the bleeding under control, and probably lost 150 mL doing this. After this most of the regular anatomy was restored and then I advanced the bladder, used a curved Chuck to slide off the cardinal ligaments, cut them with a stump and ligated them with a transfixion suture of chromic catgut, after I had removed the fibroid tumor on the left side, it did not extend that far down the cervix. The cervix was quite long. I did do 3 bites to get the cardinal ligament, then I shelled out the cervix with electrocautery. I used the suture of chromic catgut at each angle to tag the vaginal cuff to the stumps of the cardinal ligaments, I then whipstitched open the vaginal cuff and then I did a [id number] suture to approximate the front to the back of the whipstitched open vaginal mucosa, put a Raina drain with a safety pin into the vagina and then out into the peritoneum. Dr. Munoz then helped me go retroperitoneal, identify the ureter and trace it out to ensure that it was patent and that the sutures used on the left side to clamp the uterine vessels had not compromised the ureter. Once this was done, I reperitonealized the pelvic peritoneum. I washed the pelvis clean and the sponge and instrument count was normal. Peritoneum was closed with a mattress suture of chromic catgut. Recti muscles were approximated with interrupted [id number] suture of chromic catgut. The fascia was closed with continuous interlocking suture of Vicryl on each side, tied in the midline. SubQ was approximated with continuous plain, the skin edges were approximated with staple clips. I attest to the content of the Intraoperative Record and any orders documented therein. Any exceptio ns are noted below.
[2016-03-27] MEDS ORDERED: SODIUM CHLORIDE 0.9% 1000ML 1,000 ML IV SCH (12:17)
[2016-03-27] MEDS ORDERED: HYDROmorphone HCL 0.5MG/ML 50 ML CASSETTE ONE (12:23)
[2016-03-27] MEDS ORDERED: NALOXONE HCL 0.4 MG/1 ML VIAL/CARP IV PRN (12:30)
[2016-03-27] MEDS ORDERED: HYDROmorphone HCL 0.5MG/ML 50 ML CASSETTE IV PRN (12:30)
--- NOTE | 2016-03-27 12:38 | Anesthesiology Progress Note ---
Anesthesia Post Op Note Date & Time Mar 27, 2016 at 12:35 Vital Signs Pain Intensity: 10 Vital Signs Past 12 Hours Date Time Temp Pulse Resp B/P Pulse Ox O2 Delivery O2 Flow Rate FiO2 03/27/16 12:15 73 12 141/84 93 Nasal Cannula 2 03/27/16 12:05 70 14 140/81 92 Nasal Cannula 2 03/27/16 11:55 69 12 143/82 91 Nasal Cannula 2 03/27/16 11:45 70 10 142/97 92 Nasal Cannula 2 03/27/16 11:35 63 14 142/97 100 Nasal Cannula 2 03/27/16 11:25 64 14 137/92 99 Mask 10 03/27/16 11:15 61 10 147/89 100 Mask 10 03/27/16 11:08 36.8 64 13 153/83 99 Mask 10 03/27/16 06:25 36.7 77 18 137/84 96 Room Air Notes Mental Status: alert / awake / arousable, participated in evaluation Pt Amnestic to Procedure: Yes Nausea / Vomiting: adequately controlled Pain: improving with treatment Airway Patency, RR, SpO2: stable & adequate BP & HR: stable & adequate Hydration State: stable & adequate Anesthetic Complications: no major complications apparent Patient had BELKYS done. SAB was attempted prior to the procedure but unable to find subarachnoid space and therefore patient was unable to receive a dose of duramorph. Patient was given multimodal IV pain medication but stated her pain was not well controlled. After speaking to attending surgeon, we both agreed that the patient would need OCEAN CLAM BOAT CAPTAIN. Dr. Ramsay asked that I personally enter in the [employer]TAIN orders as he was unfamiliar with doing so. I called inpatient pharmacist to ensure the dilaudid [employer]TAIN orders were entered correctly and then spoke with the patient about the pain plan and PACU nurse explained how to use the [employer]CE[employer]AM [employer]AT CAPTAIN. Patient was in agreement with the plan and all questions were answered.
[2016-03-27] MEDS ORDERED: KETOROLAC TROMETHAMINE 30 MG/ML VIAL IV. PRN (14:00)
[2016-03-27] MEDS: D5W AND LACTATED RINGERS 1,000 ML IV SCH ×2 (14:14→23:16)
[2016-03-27] MEDS ORDERED: BUPIVACAINE 0.25% 30 ML VIAL ONE (15:33)
--- NOTE | 2016-03-27 16:46 | Anesthesiology Progress Note ---
Anesthesia Progress Note Date of Service Mar 27, 2016. Progress Notes BILATERAL POSTOPERATIVE TAPS BLOCKS I was called by the floor nurse taking care of Ms. 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 I went to see the patient and she stated her pain was 9.5/10 in intensity located in her abdomen. Patient's BP mildly elevated but HR steady in 70's. Patient was not tearful and was speaking in a calm manner but did endorse this significant pain. I stated I would offer her bilateral TAPS blocks for postoperative pain control and patient and her family did decide to have these done. I spoke with the attending physician Dr. Ramsay and he agreed TAPS blocks would be appropriate. Patient was called to [facility] via transport along with her mother. Patient was consented for bilateral TAPS blocks and her mother also agreed and cosigned as a witness. She was placed on standard ASA monitors with EtCO2 monitoring and oxygen via facemask. No sedation was given. She was placed in supine position and lateral abdomen between last rib and iliac crests were prepped and draped bilaterally using sterile technique. Using 10cm stimuplex needle under direct ultrasound guidance, a total of 20ml per side of 0.25% bupivicaine was injected in divided doses. Blocks each performed on first attempt. No paresthesias, no blood return, patient tolerated very well. She was monitored for 20 minutes postprocedure and during this time Dr. Ramsay came and spoke with the patient and her mother. Prior to being transferred back to the floor, patient was tolerating ice chips, stated her pain was decreasing, looked more comfortable and said she was relieved that she could finally start taking some deeper breaths. She was instructed that she could continue to use her CORPORATE TAX PREPARER if necessary and all questions were answered prior to her going back to her room. VSS. Report given to her floor nurse. Jr Barrientos MD Staff Anesthesiologist
[2016-03-27] MEDS: LOSARTAN/HCTZ 50-12.5 EA TAB PO SCH (18:22)
[2016-03-27] MEDS ORDERED: COUGH DROP (SUGAR FREE) LOZ 24 LOZ/1 BOX ONE (20:09)
[2016-03-27] MEDS ORDERED: NURSING VERBAL MED ORDER ONE (22:00)
[2016-03-27] MEDS: KETOROLAC TROMETHAMINE 30 MG/ML VIAL IV. PRN (23:17)
[2016-03-28 04:30] VITALS: BP 126/75; PULSE 71; TEMP 37.1; O2SAT 94
[2016-03-28] MEDS: KETOROLAC TROMETHAMINE 30 MG/ML VIAL IV. PRN ×2 (05:48→11:28)
[2016-03-28] MEDS: D5W AND LACTATED RINGERS 1,000 ML IV SCH (05:49)
[2016-03-28 07:45] VITALS: BP 153/81; PULSE 66; TEMP 36.7; O2SAT 93
[2016-03-28 08:14] LABS: BASO % 0.1 %; BASO ABS # 0.01 K/uL (0-0.2); COMPLETE YES; EOS % 0.7 %; HEMATOCRIT 33.6 % (37-47); IG% 0.1 %; LYMPH % 17.5 %; LYMPH ABS # 1.69 K/uL (1.2-3.4); MEAN CELL VOLUME 82.2 fL (80-100); MEAN CORPUSCULAR HEMOGLOBIN 27.1 pg (25-34); MEAN PLATELET VOLUME 10.7 fL (7.4-10.4); MONO % 8.3 %; NEUT % 73.3 %; PLATELET COUNT 193 K/uL (130-400); RED BLOOD COUNT 4.09 M/uL (4.2-5.4); WHITE BLOOD COUNT 9.68 K/uL (4.8-10.8)
[2016-03-28] MEDS: DOCUSATE SODIUM/SENNA 50/8.6MG TAB PO SCH (09:15)
[2016-03-28] MEDS: VERAPAMIL HCL 120 MG TABCR PO SCH (09:15)
[2016-03-28] MEDS: BuPROPion XL 150 MG TABCR PO SCH (09:15)
--- NOTE | 2016-03-28 11:39 | Progress Note ---
Subjective Mar 28, 2016. Subjective conversation w/ patient Ambulation: limited ambulation Voiding: fairchild catheter in place Passing Gas: No Diet Tolerance: Clear Liquids Review of Systems Constitutional: + fever Objective Vital Signs Date Time Temp Pulse Resp B/P Pulse Ox O2 Delivery O2 Flow Rate FiO2 03/28/16 07:45 93 Room Air 03/28/16 07:45 36.7 66 20 153/81 93 Room Air 03/28/16 04:30 37.1 71 18 126/75 94 Room Air 03/27/16 23:20 95 Nasal Cannula 1.0 03/27/16 23:20 36.8 79 18 149/82 95 Nasal Cannula 1.0 03/27/16 20:00 36.9 77 18 155/83 93 Nasal Cannula 1.0 03/27/16 17:10 36.7 81 16 164/92 96 Nasal Cannula 2.0 03/27/16 17:00 93 Nasal Cannula 2.0 03/27/16 16:40 36.9 83 18 156/96 97 Nasal Cannula 2.0 03/27/16 14:50 36.6 74 16 162/95 96 Nasal Cannula 2.0 03/27/16 13:50 36.5 65 16 166/93 95 Nasal Cannula 2.0 03/27/16 12:50 93 Nasal Cannula 2.0 03/27/16 12:50 93 Nasal Cannula 2.0 03/27/16 12:45 66 18 139/89 93 Nasal Cannula 2 03/27/16 12:35 36.6 75 22 159/89 93 Nasal Cannula 2 03/27/16 12:25 70 12 158/85 93 Nasal Cannula 2 03/27/16 12:15 73 12 141/84 93 Nasal Cannula 2 03/27/16 12:05 70 14 140/81 92 Nasal Cannula 2 03/27/16 11:55 69 12 143/82 91 Nasal Cannula 2 03/27/16 11:45 70 10 142/97 92 Nasal Cannula 2 Physical Exam General Appearance: WELL-APPEARING Respiratory/Chest: lungs clear Abdomen: normal bowel sounds, non tender Incision Description: Clean, Dry & Intact Extremities: no pedal edema, no calf tenderness Laboratory Results Last 24 Hours Test 03/28/16 07:30 White Blood Count 9.68 K/uL Red Blood Count 4.09 M/uL Hemoglobin 11.1 g/dL Hematocrit 33.6 % Mean Corpuscular Volume 82.2 fL Mean Corpuscular Hemoglobin 27.1 pg Mean Corpuscular Hemoglobin Concent 33.0 g/dl Platelet Count 193 K/uL Mean Platelet Volume 10.7 fL Neutrophils (%) (Auto) 73.3 % Lymphocytes (%) (Auto) 17.5 % Monocytes (%) (Auto) 8.3 % Eosinophils (%) (Auto) 0.7 % Basophils (%) (Auto) 0.1 % Neutrophils # (Auto) 7.10 K/uL Lymphocytes # (Auto) 1.69 K/uL Monocytes # (Auto) 0.80 K/uL Eosinophils # (Auto) 0.07 K/uL Basophils # (Auto) 0.01 K/uL RDW Standard Deviation 42.6 fL RDW Coefficient of Variation 14.1 % Immature Granulocyte % (Auto) 0.1 % Immature Granulocyte # (Auto) 0.01 K/uL Assessment and Plan Problem List Medical Problems: (1) Right facial numbness Status: Acute (2) Syncope Status: Acute Post-Op Day#: 1 Continue Routine Care: patient is still painful
[2016-03-28] MEDS ORDERED: NURSING VERBAL MED ORDER ONE ×4 (11:45→21:45)
[2016-03-28] MEDS: OXYCODONE/ACETAMINOPHEN 5-325 TAB PO PRN ×3 (12:19→20:17)
[2016-03-28 12:25] VITALS: BP 151/85; PULSE 66; TEMP 37; O2SAT 96
[2016-03-28] MEDS: IBUPROFEN 600 MG TAB PO PRN ×3 (16:11→23:58)
[2016-03-28 16:25] VITALS: BP 130/84; PULSE 72; TEMP 36.8; O2SAT 97
[2016-03-28] MEDS ORDERED: ALBUTEROL HFA 8 GM INHALER INH PRN (17:45)
[2016-03-28 20:20] VITALS: BP 145/81; PULSE 73; TEMP 37; O2SAT 95
[2016-03-28] MEDS: LOSARTAN/HCTZ 50-12.5 EA TAB PO SCH (20:29)
[2016-03-28 21:30] VITALS: BP 124/70; PULSE 72; O2SAT 94
[2016-03-28] MEDS ORDERED: CALCIUM CARBONATE 500 MG CHEWABLE PO PRN (22:00)
[2016-03-29 00:05] VITALS: BP 119/71; PULSE 69; TEMP 36.8; O2SAT 93
[2016-03-29] MEDS: OXYCODONE/ACETAMINOPHEN 5-325 TAB PO PRN ×7 (03:32→23:49)
[2016-03-29] MEDS: IBUPROFEN 600 MG TAB PO PRN ×6 (03:33→23:49)
[2016-03-29 07:30] VITALS: BP 123/71; PULSE 69; TEMP 36.5
[2016-03-29] MEDS: FEXOFENADINE HCL 180 MG TAB PO SCH (07:39)
[2016-03-29] MEDS: VERAPAMIL HCL 120 MG TABCR PO SCH (07:40)
[2016-03-29] MEDS: BuPROPion XL 150 MG TABCR PO SCH (07:42)
[2016-03-29] MEDS: DOCUSATE SODIUM/SENNA 50/8.6MG TAB PO SCH (07:42)
[2016-03-29 07:49] LABS: BASO % 0.2 %; BASO ABS # 0.02 K/uL (0-0.2); COMPLETE YES; EOS % 3.5 %; HEMATOCRIT 34.1 % (37-47); IG% 0.2 %; LYMPH % 19.7 %; LYMPH ABS # 1.69 K/uL (1.2-3.4); MEAN CORPUSCULAR HEMOGLOBIN 27.3 pg (25-34); MEAN CORPUSCULAR HGB CONC 32.6 g/dl (32-36); MEAN PLATELET VOLUME 10.6 fL (7.4-10.4); MONO % 7.5 %; NEUT % 68.9 %; PLATELET COUNT 177 K/uL (130-400); RED BLOOD COUNT 4.06 M/uL (4.2-5.4); WHITE BLOOD COUNT 8.59 K/uL (4.8-10.8)
--- NOTE | 2016-03-29 10:57 | Progress Note ---
Subjective Mar 29, 2016. Subjective conversation w/ patient Ambulation: ambulating normally Voiding: no voiding problems, fairchild catheter in place Passing Gas: Yes Diet Tolerance: Regular Diet Lochia: Small Review of Systems Constitutional: + fever Objective Vital Signs Date Time Temp Pulse Resp B/P Pulse Ox O2 Delivery O2 Flow Rate FiO2 03/29/16 07:30 36.5 69 20 123/71 03/29/16 07:30 Room Air 03/29/16 00:05 36.8 69 20 119/71 93 Room Air 03/29/16 00:05 93 Room Air 03/28/16 21:30 72 124/70 94 Room Air 72 03/28/16 20:20 37.0 73 18 145/81 95 Room Air 03/28/16 16:25 36.8 72 22 130/84 97 Room Air 03/28/16 16:25 97 Room Air 03/28/16 12:25 37.0 66 20 151/85 96 Room Air Physical Exam General Appearance: WELL-APPEARING Respiratory/Chest: lungs clear Abdomen: normal bowel sounds, non tender Incision Description: Clean, Dry & Intact Extremities: no pedal edema, no calf tenderness Laboratory Results Last 24 Hours Test 03/29/16 07:20 White Blood Count 8.59 K/uL Red Blood Count 4.06 M/uL Hemoglobin 11.1 g/dL Hematocrit 34.1 % Mean Corpuscular Volume 84.0 fL Mean Corpuscular Hemoglobin 27.3 pg Mean Corpuscular Hemoglobin Concent 32.6 g/dl Platelet Count 177 K/uL Mean Platelet Volume 10.6 fL Neutrophils (%) (Auto) 68.9 % Lymphocytes (%) (Auto) 19.7 % Monocytes (%) (Auto) 7.5 % Eosinophils (%) (Auto) 3.5 % Basophils (%) (Auto) 0.2 % Neutrophils # (Auto) 5.92 K/uL Lymphocytes # (Auto) 1.69 K/uL Monocytes # (Auto) 0.64 K/uL Eosinophils # (Auto) 0.30 K/uL Basophils # (Auto) 0.02 K/uL RDW Standard Deviation 43.3 fL RDW Coefficient of Variation 14.1 % Immature Granulocyte % (Auto) 0.2 % Immature Granulocyte # (Auto) 0.02 K/uL Assessment and Plan Problem List Medical Problems: (1) Right facial numbness Status: Acute (2) Syncope Status: Acute Post-Op Day#: 2 Continue Routine Care: flakito drain removed from vagina
[2016-03-29 15:30] VITALS: BP 112/60; PULSE 73; TEMP 37.2
[2016-03-29] MEDS: LOSARTAN/HCTZ 50-12.5 EA TAB PO SCH (20:59)
[2016-03-29 23:30] VITALS: BP 117/64; PULSE 78; TEMP 37.1; O2SAT 96
[2016-03-30] MEDS: IBUPROFEN 600 MG TAB PO PRN ×2 (04:33→08:48)
[2016-03-30] MEDS: OXYCODONE/ACETAMINOPHEN 5-325 TAB PO PRN ×2 (04:33→08:48)
--- NOTE | 2016-03-30 07:48 | Progress Note ---
Subjective Mar 30, 2016. Subjective conversation w/ patient Ambulation: ambulating normally Voiding: no voiding problems, fairchild catheter in place Passing Gas: Yes Diet Tolerance: Regular Diet Lochia: Small Review of Systems Constitutional: + fever Objective Vital Signs Date Time Temp Pulse Resp B/P Pulse Ox O2 Delivery O2 Flow Rate FiO2 03/29/16 23:30 96 Room Air 03/29/16 23:30 37.1 78 16 117/64 96 Room Air 03/29/16 15:30 37.2 73 20 112/60 Room Air 03/29/16 15:30 Room Air Physical Exam General Appearance: WELL-APPEARING Respiratory/Chest: lungs clear Abdomen: normal bowel sounds, non tender Extremities: no pedal edema, no calf tenderness Assessment and Plan Problem List Medical Problems: (1) Right facial numbness Status: Acute (2) Syncope Status: Acute Post-Op Day#: 3
--- NOTE | 2016-03-30 07:52 | Discharge Instructions ---
Discharge Instructions Admission Reason for Admission: Irregular Prolonged Vaginal Bleeding, Fibroid Uter Discharge Discharge Diagnosis / Problem: same as above Discharge Goals Goal(s): Routine recovery after surgery Activity Recommendations Activity Limitations: as noted below ACTIVITY RECOMMENDATIONS: * Gradual return to full activity over next 2-3 weeks. * No heavy lifting over next 2-3 weeks. * Nothing in the vagina (no intercourse, tampons, or douching) for 4 weeks * You may walk up and down steps as necessary. * You may drive a car in 2 weeks. * Hot shower or tub bath daily. SPECIAL CARE INSTRUCTIONS: * Check temperature twice daily for one week. Report any elevation over 100.4 degrees Fahrenheit (38.0 degrees Celsius). * Call your doctor if bleeding becomes heavier than the heaviest part of your period - saturating a sanitary pad within an hour. * If you develop a red, hard, warm swollen lump on your incision or if you develop any separation of or drainage from your incision, notify your doctor. . Current Hospital Diet Patient's current hospital diet: Low Sodium Diet (2gm Na) Discharge Diet Recommended Diet: Regular Diet Procedures Procedures Performed: Total Abdominal Hysterectomy, Bilateral Salpingo-oopherectomy Pending Studies Studies pending at discharge: no Medical Emergencies . Who to Call and When: Medical Emergencies: If at any time you feel your situation is an emergency, please call 911 immediately. . Non-Emergent Contact Non-Emergency issues call your: Physician Executive Call Non-Emergent contact if: temperature is above 100.5 . . "Provider Documentation" section prepared by Jesus Alberto Ramsay. VTE Core Measure Inpt VTE Proph given/why not?: Treatment not indicated
--- NOTE | 2016-03-30 08:15 | DISCHARGE SUMMARY ---
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 She also had perimenopausal bleeding. She also had a uterine fibroid. She was admitted primarily for removal of the ovarian tumor. The day of admission she was taken to the OR where she underwent a total abdominal hysterectomy, bilateral salpingo-oophorectomy. We had a little bit of difficulty with bleeding on the left side because of the location of the fibroid, however, it was controlled. The estimated blood loss at the time was 250 mL. Postoperatively for 2 days we had trouble with pain control, but after about 2 postoperative days we finally got a hold of the pain control and got her on oral pain medications. At the time of discharge, she was ambulating well, eating well. Her vital signs were normal. Her postoperative hemoglobin was 11.1, hematocrit 34.1 and she was discharged with prescriptions for Percocet and Motrin for pain control and Estrace 1 mg for estrogen replacement. She was also told to return to the office for removal of lurdes.
--- NOTE | 2016-03-30 08:25 | Anesthesiology Progress Note ---
Anesthesia Post Op Note Date & Time Mar 30, 2016 at 08:25 Vital Signs Pain Intensity: 6.0 Vital Signs Past 12 Hours Date Time Temp Pulse Resp B/P Pulse Ox O2 Delivery O2 Flow Rate FiO2 03/29/16 23:30 96 Room Air 03/29/16 23:30 37.1 78 16 117/64 96 Room Air Notes Mental Status: alert / awake / arousable, participated in evaluation Pt Amnestic to Procedure: Yes Nausea / Vomiting: adequately controlled Pain: adequately controlled Airway Patency, RR, SpO2: stable & adequate BP & HR: stable & adequate Hydration State: stable & adequate Anesthetic Complications: no major complications apparent
[2016-03-30 08:30] VITALS: BP 124/71; PULSE 72; TEMP 36.7; O2SAT 97
[2016-03-30] MEDS: BuPROPion XL 150 MG TABCR PO SCH (08:38)
[2016-03-30] MEDS: FEXOFENADINE HCL 180 MG TAB PO SCH (08:38)
[2016-03-30] MEDS: DOCUSATE SODIUM/SENNA 50/8.6MG TAB PO SCH (08:39)
[2016-03-30] MEDS: VERAPAMIL HCL 120 MG TABCR PO SCH (08:39)
[2016-03-30 09:52] VITALS: BP 124/71; PULSE 72; TEMP 36.7; O2SAT 97
== END 2016-03-30 11:20 | disposition home or self-care (01) | DRG 983 ==
LOC: ENRESERVDT → ENRESERVTM → C.ACU 05:39 → C.MS4N 06:00 → C.OBG 03-28 16:50
PROVIDERS: ADMIT Obstetrics & Gynecology; ATTEND Obstetrics & Gynecology
PROC: 0UTC0ZZ Resection of Cervix, Open Approach (ICD-10-PCS; principal; 2016-03-27 07:15)
PROC: 0UT20ZZ Resection of Bilateral Ovaries, Open Approach (ICD-10-PCS; principal; 2016-03-27 07:15)
PROC: 0UT90ZZ Resection of Uterus, Open Approach (ICD-10-PCS; principal; 2016-03-27 07:15)
PROC: 0UT70ZZ Resection of Bilateral Fallopian Tubes, Open Approach (ICD-10-PCS; principal; 2016-03-27 07:15)
DX: D49.59 Neoplasm of unspecified behavior of other genitourinary organ (principal); D25.9 Leiomyoma of uterus, unspecified; G89.18 Other acute postprocedural pain; J45.909 Unspecified asthma, uncomplicated; I10 Essential (primary) hypertension; G43.909 Migraine, unspecified, not intractable, without status migrainosus; K21.9 Gastro-esophageal reflux disease without esophagitis; M19.90 Unspecified osteoarthritis, unspecified site; F41.9 Anxiety disorder, unspecified; F32.9 Major depressive disorder, single episode, unspecified; E66.9 Obesity, unspecified; Z68.36 Body mass index [BMI] 36.0-36.9, adult; Z88.4 Allergy status to anesthetic agent; Z91.041 Radiographic dye allergy status; Z98.51 Tubal ligation status; Z79.82 Long term (current) use of aspirin; Z79.899 Other long term (current) drug therapy

== ENCOUNTER → 2016-04-29 | Outpatient (CLI) | payer OTHER ==
[~2016-04-29] MED LIST changes: +ACET-1256 PO
== END | disposition home or self-care (01) ==
LOC: C.LABPVFM 14:58
PROVIDERS: ATTEND Nurse Practitioner
DX: R39.9 Unspecified symptoms and signs involving the genitourinary system (principal)

== ENCOUNTER → 2016-12-09 | Outpatient (CLI) | payer OTHER ==
[2016-12-09 13:07] LABS: BLOOD UREA NITROGEN 15 mg/dl (7-18); BUN/CREATININE RATIO 20.5 (10-20); CALCIUM 8.6 mg/dl (8.5-10.1); CARBON DIOXIDE 29 mmol/L (21-32); CHLORIDE 102 mmol/L (98-107); CREATININE 0.75 mg/dl (0.60-1.20); GLUCOSE 104 mg/dl (70-99); POTASSIUM 3.5 mmol/L (3.5-5.1); SODIUM 137 mmol/L (136-145)
[2016-12-09 13:11] LABS: CHOLESTEROL 198 mg/dl (0-200); CHOLESTEROL/HDL RATIO 2.4; HDL CHOLESTEROL 82 mg/dl; LDL CHOLESTEROL CALCULATED 96 mg/dl; TRIGLYCERIDES 100 mg/dl (0-150); VERY LOW DENSITY LIPOPROT CALC 20 mg/dl
== END | disposition home or self-care (01) ==
LOC: C.LABPVFM 08:45
PROVIDERS: ATTEND Nurse Practitioner
DX: I10 Essential (primary) hypertension (principal)

== ENCOUNTER → 2017-04-21 | Outpatient (CLI) | payer OTHER ==
[~2017-04-21] MED LIST changes: -LOSA100T26 PO; +LOSA100T33 PO
--- NOTE | 2017-04-21 15:14 | MAMMOGRAPHY REPORT ---
BILATERAL DIGITAL SCREENING MAMMOGRAM TOMOSYNTHESIS WITH CAD: 04/21/2017 CLINICAL HISTORY: Routine screening examination. TECHNIQUE: Breast tomosynthesis in addition to standard 2D mammography was performed. Current study was also evaluated with a Computer Aided Detection (CAD) system. COMPARISON: Comparison is made to exams dated: 03/17/2016 mammogram, 03/14/2015 mammogram, 03/13/2014 m ammogram, 07/13/2013 mammogram, 03/09/2013 mammogram, and 03/08/2012 mammogram - [facility] ter. BREAST COMPOSITION: The tissue of both breasts is almost entirely fatty. FINDINGS: The parenchymal pattern is unchanged. No developing mass, architectural distortion or clus ter of suspicious microcalcifications is seen in either breast. IMPRESSION: ACR BI-RADS CATEGORY 2: BENIGN There is no mammographic evidence of malignancy. A 1 year screening mammogram is recommended. The pa tient will receive written notification of the results. Approximately 10% of breast cancers are not detected with mammography. A negative mammographic report should not delay biopsy if a clinically suggestive mass is present. No Dao M.D. ay/:04/21/2017 10:05:30 [employer] Team Member: Maria Elena MARADIAGA(Jerry)(Zhanna), [facility] letter sent: Normal 1/2 BI-RADS Code: ACR BI-RADS Category 2: Benign
== END | disposition home or self-care (01) ==
LOC: C.MAMM 08:41
PROVIDERS: ATTEND Obstetrics & Gynecology
DX: Z12.31 Encounter for screening mammogram for malignant neoplasm of breast (principal)

== ENCOUNTER → 2017-06-08 | Outpatient (CLI) | payer OTHER | END | disposition home or self-care (01) | LOC: C.PAPS 15:09 | PROVIDERS: ATTEND Obstetrics & Gynecology | DX: Z01.419 Encounter for gynecological examination (general) (routine) without abnormal findings (principal) ==

== ENCOUNTER → 2017-06-29 | Outpatient (CLI) | payer OTHER ==
[2017-06-29 13:26] LABS: HEMOGLOBIN A1C 5.7 % (4.5-5.6)
[2017-06-29 13:46] LABS: BLOOD UREA NITROGEN 18 mg/dl (7-18); CALCIUM 9.5 mg/dl (8.5-10.1); CARBON DIOXIDE 31 mmol/L (21-32); CREATININE 0.79 mg/dl (0.60-1.20); GLUCOSE 94 mg/dl (70-99); POTASSIUM 3.6 mmol/L (3.5-5.1); SODIUM 137 mmol/L (136-145)
== END | disposition home or self-care (01) ==
LOC: C.LABPVFM 09:26
PROVIDERS: ATTEND Nurse Practitioner
DX: R73.01 Impaired fasting glucose (principal); I10 Essential (primary) hypertension

== ENCOUNTER 2023-09-03 23:57 | Observation (INO) ==
[2023-09-04] MEDS: dilTIAZem HCl 5 MG/ML 5 ML VIAL IV STA ×2 (00:14→01:47)
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
[2023-09-04 00:18] LABS: Hematocrit (blood only) 44.1 % (37.0-47.0); Hemoglobin 14.2 g/dl (12.0-16.0); Mean Corpuscular Hemoglobin 27.3 pg (25.0-34.0); Mean Corpuscular Hgb Conc 32.2 g/dL (32.0-36.0); Mean Corpuscular Volume 84.8 fL (80.0-100.0); Mean Platelet Volume 10.6 fL (9.4-12.4); Platelet Count 222 K/uL (130-400); RDW Coefficient of Variation 13.3 % (11.5-14.5); RDW Standard Deviation 41.5 fL (36.4-46.3); White Blood Count 8.82 K/ul (4.8-10.8)
[2023-09-04 00:37] LABS: Albumin Globulin Ratio 1.2 (0.9-2); Albumin Level 4.5 gm/dl (3.4-5.0); BUN Creatinine Ratio 30.1 (10-20); Bilirubin,Total 0.2 mg/dl (0.2-1.0); Calcium 9.7 mg/dl (8.6-10.3); Creatinine Clr Calc Pharmacy 77.7 ml/min; Est GFR (African American) 88.8 ml/min; Est GFR (Non-African American) 76.6 ml/min; Globulin 3.8 gm/dl (2.5-4.0); Potassium 3.2 mmol/L (3.5-5.1); Total Protein 8.3 gm/dl (6.0-8.3)
[2023-09-04 00:43] LABS: Troponin I High Sensitivity 4.3 pg/ml (0-14)
[2023-09-04 00:52] LABS: Thyroid Stimulating Hormone 3.879 uIu/ml (0.300-4.500)
[2023-09-04 01:04] LABS: Basophils # (auto) 0.02 K/uL (0.00-0.20); Basophils % (auto) 0.2 %; Eosinophils # (auto) 0.24 K/uL (0.00-0.50); Eosinophils % (auto) 2.7 %; Immature Granulocytes # (auto) 0.02 K/uL (0.01-0.20); Immature Granulocytes % (auto) 0.2 %; Lymphocytes # (auto) 4.45 K/uL (1.20-3.40); Lymphocytes % (auto) 50.5 %; Monocytes # (auto) 0.55 K/uL (0.11-0.59); Monocytes % (auto) 6.2 %; Neutrophils # (auto) 3.54 K/uL (1.40-6.50); Neutrophils % (auto) 40.2 %
[2023-09-04] MEDS: SODIUM CHLORIDE 0.9% 500 ML IV ONE (01:23)
[2023-09-04] MEDS: POTASSIUM CHLORIDE / WTR 10 MEQ/100 ML PLCT IV ONE (01:23)
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
[2023-09-04] MEDS: METOPROLOL SUCC 25MG EXT REL TAB PO STA (04:46)
[2023-09-04] MEDS: MAGNESIUM SULFATE / D5W 1 GM/100 ML BAG IV ONE (04:58)
[2023-09-04] MEDS: POTASSIUM CHLORIDE / WTR 10 MEQ/100 ML PLCT IV SCH (04:59)
[2023-09-04] MEDS: HEPARIN SODIUM/DEXTROSE 25,000 UNITS/500 ML BAG IV SCH (05:45)
[2023-09-04] MEDS: Heparin IV Adult Wt-Based Low-Dose *NO* INITIAL Bolus Protocol IV SCH (05:55)
[2023-09-04] MEDS ORDERED: ALBUTEROL HFA 8 GM INHALER INH PRN (06:19)
[2023-09-04] MEDS ORDERED: NON-FORMULARY MEDICATION (Aspirin-Acetaminophen-Caffeine [Excedrin Migraine] 250-250-65 mg PO PRN (06:19)
[2023-09-04] MEDS ORDERED: FEXOFENADINE HCL 180 MG TAB PO PRN (06:19)
[2023-09-04] MEDS: METOPROLOL TARTRATE 1 MG/ML VIAL IV PRN (07:17)
--- NOTE | 2023-09-04 08:01 | Hospitalist Progress Note ---
Date of Service September 04, 2023 Assessment & Plan (1) Atrial fibrillation with rapid ventricular response: (2) Hypokalemia: (3) Acute dehydration: (4) SORAYA (obstructive sleep apnea): (5) Hypertension: (6) Asthma: (7) Depression: (8) Anxiety: (9) Diabetes: (10) Obesity (BMI 30-39.9): Plan #AFib with RVR / PAF - Cardizem 20 mg IV push, Cardizem 10 mg IV push, NSS 500 mL bolus - EKG showing AFib with RVR with ST depression - CHADS2 Vasc: 3 (gender, HTN, DM II) - TSH wnl - trop neg - ECHO - currently on hept gtt - on Metoprolol, frequency changed - cardiology eval pending #Hypokalemia - replete and monitor #HTN - cont losartan, metoprolol, verapamil - clonidine and HCTZ on hold - cont aspirin #DM II - Ha1c: 6.1 as far as 2021 - pt is not on any meds as outpatient - will monitor BG here - diabetic diet - will request ems educator eval #Obesity - BMI 37 - counseled pt on diet and exercise #Asthma/SORAYA/allergic rhinitis- - Continue albuterol HFA 2 puffs every 6 hours as needed - Continue fexofenadine 100 mg daily as needed - Continue Flonase nasal spray Admission and Anticipated Discharge Date Admission Date: September 04, 2023 Subjective Admitted overnight Currently still having palpitations with elevated heart rate Otherwise doing well. Review of Systems Review of Systems: comprehensive ROS completed. Physical Exam Physical Exam: Gen: no acute distress, sitting in bed comfortably HEENT: normocephalic / atraumatic, anicteric, moist mucous membranes CVS: s1s2 nl, tachycardic, irregular, no M/R/G Lungs: CTAB Abd: + bowel sounds, soft, nontender, nondistended, no rigidity / guarding / rebound Ext: no edema Neuro: awake, alert Psych: non anxious Results & Data Results & Data Vital Signs (Past 12 Hours) Vital Signs Temp Pulse Pulse Resp BP BP Pulse Ox 09/04/23 07:17 137 H 162/102 H 09/04/23 06:32 36.9 C 88 18 155/101 H 96 09/04/23 04:51 95 H 18 160/89 H 96 09/04/23 04:45 135 H 18 160/89 H 96 09/04/23 04:17 124 H 09/04/23 04:12 127 H 19 177/114 H 95 09/04/23 04:06 107 H 14 141/90 H 94 09/04/23 03:33 92 H 18 145/121 H 94 09/04/23 03:00 88 19 129/104 H 95 09/04/23 03:00 105 H 16 129/104 H 97 09/04/23 02:30 133 H 24 150/90 H 88 L 09/04/23 02:01 98 H 18 141/92 H 94 09/04/23 02:00 114 H 20 141/92 H 94 09/04/23 01:50 96 H 14 139/92 93 09/04/23 01:48 88 22 139/92 95 09/04/23 01:45 116 H 19 153/99 H 94 09/04/23 01:45 121 H 17 153/99 H 95 09/04/23 01:33 103 H 26 H 134/104 H 95 09/04/23 01:15 98 H 14 129/93 95 09/04/23 01:00 123 H 19 155/92 H 95 09/04/23 00:46 110 H 19 144/112 H 94 09/04/23 00:45 106 H 20 144/112 H 94 09/04/23 00:17 94 H 23 131/82 95 09/04/23 00:15 129 H 21 131/82 94 09/04/23 00:05 168/114 H 09/04/23 00:05 130 H 09/04/23 00:01 36.9 C 154 H 20 168/114 H 97 O2 Del Method 09/04/23 07:17 09/04/23 06:32 Room Air 09/04/23 04:51 Room Air 09/04/23 04:45 Room Air 09/04/23 04:17 09/04/23 04:12 09/04/23 04:06 09/04/23 03:33 09/04/23 03:00 09/04/23 03:00 Room Air 09/04/23 02:30 09/04/23 02:01 09/04/23 02:00 Room Air 09/04/23 01:50 Room Air 09/04/23 01:48 09/04/23 01:45 09/04/23 01:45 09/04/23 01:33 09/04/23 01:15 09/04/23 01:00 09/04/23 00:46 Room Air 09/04/23 00:45 09/04/23 00:17 Room Air 09/04/23 00:15 09/04/23 00:05 09/04/23 00:05 09/04/23 00:01 Room Air Laboratory Results Abnormal lab results 09/04/23 09/04/23 Range/Units 00:02 12:18 Lymph # (Auto) 4.45 H (1.20-3.40) K/uL Potassium 3.2 L (3.5-5.1) mmol/L BUN 25 H (6-23) mg/dl BUN/Creatinine Ratio 30.1 H (10-20) Glucose 158 H (70-99(Fasting)) mg/dl Hemoglobin A1c 6.1 H (4.5-5.6) % Medications Administered Home Medications Medication Instructions Recorded Confirmed Last Taken [id number]-xlsikuwvtnixw-oqfjsvew 250 2 tab PO Q6H PRN pain #30 tabs 10/04/18 09/04/23 Unknown mg-250 mg-65 mg tablet (Excedrin Migraine) fexofenadine 180 mg tablet 180 mg PO DAILY PRN Allergy 08/26/21 09/04/23 Unknown (Luzma Allergy) Symptoms fluticasone propionate 50 2 spray intranasal BID 08/26/21 09/04/23 08/25/21 mcg/actuation nasal spray,suspension (Flonase Allergy Relief) hydrochlorothiazide 25 mg tablet 25 mg PO DAILY #30 tabs 10/08/22 09/04/23 Unknown aspirin 81 mg tablet,delayed 81 mg PO DAILY 10/16/22 09/04/23 Unknown release (Adult Aspirin Regimen) albuterol sulfate 90 mcg/actuation 2 puff inhalation Q6H PRN 02/16/23 09/04/23 Unknown aerosol inhaler (Ventolin HFA) shortness of breath or wheezing #6.7 grams clonidine HCl 0.1 mg tablet 0.1 mg PO HS Hypertension #90 tabs 04/20/23 09/04/23 Unknown verapamil 180 mg tablet,extended 180 mg PO DAILY #90 tabs 06/07/23 09/04/23 Unknown release losartan 100 mg tablet 100 mg PO DAILY #90 tabs 08/03/23 09/04/23 Unknown metoprolol succinate 25 mg 25 mg PO DAILY #90 tabs 08/03/23 09/04/23 Unknown tablet,extended release 24 hr acetaminophen 650 mg 1,300 mg PO DAILY 09/04/23 09/04/23 Unknown tablet,extended release (Tylenol Arthritis Pain) diclofenac sodium 1 % topical gel 2 g topical BID 09/04/23 09/04/23 Unknown (Arthritis Pain (diclofenac)) Active Medications Generic Name Dose Route Start Last Admin Trade Name Freq PRN Reason Stop Dose Admin Aspirin 81 mg 09/04/23 09:00 09/04/23 09:05 Aspirin 81 Mg Ectab PO 10/04/23 08:59 81 mg DAILY NANCI Administration Diclofenac Sodium 2 gm 09/04/23 09:00 09/04/23 09:06 Diclofenac Sod 1% Gel 100 Gm Tube EXT 10/04/23 08:59 2 gm BID NANCI Administration Protocol Fluticasone Propionate 2 sprays 09/04/23 09:00 09/04/23 09:09 Fluticasone Propionate Na Spr 16 Gm Btl CAIO 10/04/23 08:59 Not Given BID NANCI Heparin Sodium/Dextrose 25,000 units in 500 mls @ 16 mls/hr 09/04/23 04:30 09/04/23 07:42 Heparin Sodium/Dextrose IV 10/04/23 04:29 800 units/hr .Q24H NANCI 16 mls/hr Titration Protocol 800 UNITS/HR Losartan Potassium 100 mg 09/04/23 09:00 09/04/23 09:05 Losartan Potassium 50 Mg Tab PO 10/04/23 08:59 100 mg DAILY NANCI Administration Metoprolol Tartrate 5 mg 09/04/23 04:23 09/04/23 07:17 Metoprolol Tartrate 1 Mg/Ml Vial IV 10/04/23 04:22 5 mg Q4H PRN Administration Tachycardia Metoprolol Tartrate 25 mg 09/04/23 11:00 09/04/23 11:22 Metoprolol Tartrate 25 Mg Tab PO 10/04/23 10:59 25 mg Q8H NANCI Administration Verapamil HCl 180 mg 09/04/23 11:00 09/04/23 11:23 Verapamil Hcl 180 Mg Tabcr PO 08/05/24 10:59 180 mg QAM NANCI Administration PG Care Time/CCT Total # of Minutes Spent Total Time Spent with Patient: Total time spent is greater than 50% in coordination of care (as documented) at patient's floor/unit and/or counseling patient: Coding Level of Care Code 63450 SUB INP/OBS CARE 3/50MIN Diagnoses Atrial fibrillation with rapid ventricular response I48.91 Hypokalemia E87.6 Acute dehydration E86.0 SORAYA (obstructive sleep apnea) G47.33 Primary hypertension I10 Hypertension type: primary hypertension Asthma J45.909 Depression F32.9 Anxiety F41.9 Diabetes E11.9 Obesity (BMI 30-39.9) E66.9 (5) Hypertension Hypertension type: primary hypertension Qualified Code(s): I10 - Essential (primary) hypertension
--- NOTE | 2023-09-04 09:04 | Electrocardiogram Report ---
Test Reason : Blood Pressure : / mmHG Vent. Rate : 146 BPM Atrial Rate : 000 BPM P-R Int : 000 ms QRS Dur : 076 ms QT Int : 290 ms P-R-T Axes : 000 054 -31 degrees QTc Int : 451 ms Atrial fibrillation with rapid ventricular response Diffuse Nonspecific ST and T wave abnormality Abnormal ECG When compared with ECG of 30-JUL-2022 06:43, Atrial fibrillation has replaced Sinus rhythm Vent. rate has increased BY [address] and T wave abnormality now present Confirmed by Roel Luna ([id number]) on 09/04/2023 9:04:06 AM Referred By: REFERRED SELF Confirmed By:Roel Luna
[2023-09-04] MEDS: ASPIRIN 81 MG ECTAB PO SCH (09:05)
[2023-09-04] MEDS: LOSARTAN POTASSIUM 50 MG TAB PO SCH (09:05)
[2023-09-04] MEDS: FLUTICASONE PROPIONATE NA SPR 16 GM BTL NAE SCH (09:05)
[2023-09-04] MEDS: DICLOFENAC SOD 1% GEL 100 GM TUBE EXT SCH (09:06)
--- NOTE | 2023-09-04 09:57 | XCELERA ---
[id number] \\[email or web address]\[id number]
[2023-09-04] MEDS: METOPROLOL TARTRATE 25 MG TAB PO SCH (11:22)
[2023-09-04] MEDS: VERAPAMIL HCL 180 MG TABCR PO SCH (11:23)
[2023-09-04] MEDS: METOPROLOL SUCC 25MG EXT REL TAB PO SCH (12:47)
[2023-09-04 12:54] LABS: Estimated Average Glucose 128 mg/dl; Hemoglobin A1C 6.1 % (4.5-5.6)
[2023-09-04 13:08] LABS: ANTI-Xa, UFH(UnfractionatedHep 0.17 IU/ml (0.3-0.7)
[2023-09-04 13:12] LABS: BUN Creatinine Ratio 19.7 (10-20); Calcium 8.9 mg/dl (8.6-10.3); Creatinine Clr Calc Pharmacy 88.2 ml/min; Est GFR (African American) 107.3 ml/min; Est GFR (Non-African American) 92.6 ml/min; Magnesium 2.3 mg/dl (1.7-2.4); Phosphorus 3.1 mg/dl (2.5-4.9); Potassium 4.1 mmol/L (3.5-5.1)
[2023-09-04] MEDS: HEPARIN SOD (PORCINE) 1000 UNIT/ML IV ONE (14:12)
--- NOTE | 2023-09-04 14:49 | Cardiology Consultation ---
Date of Consultation September 04, 2023 Assessment & Plan (1) Atrial fibrillation with rapid ventricular response: Recurrent A-fib with identifiable precipitant (hypokalemia). Recommend restarting her verapamil and increasing her metoprolol dosing, metoprolol tartrate 25 mg every 8 hours with consolidation to metoprolol succinate tomorrow. Given infrequent prior episodes of atrial fibrillation she was not chronically anticoagulated, but her CHADS2-Vasc score is at least 2 (gender, hypertension), agree with initiating apixaban 5 mg twice daily. (2) Hypokalemia: Likely secondary to hydrochlorothiazide. Hold diuretic for now, if she does h ave recurrent hypertension as an outpatient likely will use combination diuretic (triamterene/HCTZ) or simply use a potassium sparing diuretic such as spironolactone. (3) Hypertension: Normotensive currently. If BP runs lower as beta-naty dose is increased, could remain off diuretic and consider reducing/eliminating losartan as well. I will arrange for outpatient follow-up with me in 3 to 4 weeks. History of Present Illness Reason for Consultation: atrial fib with RVR Requesting Physician: Gisselle Aguirre MD Attending Physician: Gisselle Aguirre MD History of Present Illness 58-year-old woman with paroxysmal atrial fibrillation (metoprolol/verapamil/not routinely anticoagulated) and labile hypertension who is known to me from outpatient cardiology admitted with tachypalpitations and found to have atrial fibrillation with rapid ventricular response. Patient had been feeling well prior to the onset of tachypalpitations associate with mild nausea. Of note, she was found to be hypokalemic and has received intravenous potassium repletion. She did receive some additional beta-naty but continued to have atrial fibrillation with rapid ventricular response until shortly after I saw her earlier today, at which time she spontaneously converted back to sinus rhythm. She had noted ongoing tachypalpitations when I saw her earlier today, later she returned to sinus rhythm and was asymptomatic. Allergies Allergy/AdvReac Type Severity Reaction Status Date / Time iodine Allergy Intermediate Syncope Verified 09/04/23 01:33 Sulfa (Sulfonamide Allergy Mild RASH Verified 09/04/23 01:33 Antibiotics) Iodinated Contrast Media AdvReac Intermediate Syncope Verified 09/04/23 01:33 metformin AdvReac Mild Nausea, Verified 09/04/23 01:33 gas bloating thiopental AdvReac Unknown DIFFICULTY Verified 09/04/23 01:33 WAKING UP shellfish Allergy Mild Unknown Uncoded 09/04/23 01:33 Home Medications Medication Instructions Recorded Confirmed Type [id number] 250 2 tab PO Q6H PRN pain #30 tabs 10/04/18 09/04/23 Rx mg-250 mg-65 mg tablet (Excedrin Migraine) fexofenadine 180 mg tablet 180 mg PO DAILY PRN Allergy 08/26/21 09/04/23 History (Luzma Allergy) Symptoms fluticasone propionate 50 2 spray intranasal BID 08/26/21 09/04/23 History mcg/actuation nasal spray,suspension (Flonase Allergy Relief) hydrochlorothiazide 25 mg tablet 25 mg PO DAILY #30 tabs 10/08/22 09/04/23 Rx aspirin 81 mg tablet,delayed 81 mg PO DAILY 10/16/22 09/04/23 History release (Adult Aspirin Regimen) albuterol sulfate 90 mcg/actuation 2 puff inhalation Q6H PRN 02/16/23 09/04/23 Rx aerosol inhaler (Ventolin HFA) shortness of breath or wheezing #6.7 grams clonidine HCl 0.1 mg tablet 0.1 mg PO HS Hypertension #90 tabs 04/20/23 09/04/23 Rx verapamil 180 mg tablet,extended 180 mg PO DAILY #90 tabs 06/07/23 09/04/23 Rx release losartan 100 mg tablet 100 mg PO DAILY #90 tabs 08/03/23 09/04/23 Rx metoprolol succinate 25 mg 25 mg PO DAILY #90 tabs 08/03/23 09/04/23 Rx tablet,extended release 24 hr acetaminophen 650 mg 1,300 mg PO DAILY 09/04/23 09/04/23 History tablet,extended release (Tylenol Arthritis Pain) diclofenac sodium 1 % topical gel 2 g topical BID 09/04/23 09/04/23 History (Arthritis Pain (diclofenac)) Patient History Medical History (Updated 09/04/23 @ 12:58 by Gisselle Aguirre MD) Pre-diabetes IT band syndrome Adenomatous colon polyp Mitral regurgitation Surgical History H/O partial thyroidectomy Family History Other Asthma Hypertension Denies family history of Ovarian cancer Prostate cancer Myocardial infarction Breast cancer Colorectal cancer Social History Smoking Status: Never smoker Second Hand Exposure: No; Do You Dip or Chew Tobacco: No; Tobacco Cessation Education Requested by Patient: No Hx Alcohol Use: No Hx Substance Use: No Preferred Language: Niuean Communication Ability: Effective 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 Afebrile. BP normotensive. Pulse initially 130 bpm and irregular, later 60-70 bpm and regular, respirations 20 but unlabored. Skin: no ecchymoses or generalized lesions. HEENT: unremarkable. Neck: JVP at the clavicle at 90 degrees, no carotid bruits. Lungs: clear. Cardiac: regular/tachycardic rhythm initially, later normal rate, normal S1 and S2, 2/6 apical holosystolic murmur at the axilla and right sternal border, no diastolic murmur. Abdomen: benign. Extremities: no edema, pulses intact. Neurologic: normal affect and conversation, nonfocal. Results & Data Laboratory Results Normal CBC. Troponin 4.3. Potassium 3.2 initially, 4.1 later. Magnesium 2.0, repeat 2.3. BUN 14, creatinine 0.71. Diagnostic Findings Initial ECG atrial fibrillation with rapid ventricular sponsor and diffuse nonspecific ST-T wave abnormality. Compared with 07/30/2022 ECG, A-fib had replaced sinus rhythm ventricular rate had increased by 71 bpm, ST-T wave abnormalities now seen. PG Care Time/CCT Total # of Minutes Spent Total Time Spent with Patient: Total time spent is greater than 50% in coordination of care (as documented) at patient's floor/unit and/or counseling patient: Coding Level of Care Code 35314 IN/OBS CONSULT LVL 4,60M Diagnoses Atrial fibrillation with rapid ventricular response I48.91 Hypokalemia E87.6 Primary hypertension I10 Hypertension type: primary hypertension (3) Hypertension Hypertension type: primary hypertension Qualified Code(s): I10 - Essential (primary) hypertension
[2023-09-04] MEDS: APIXABAN 5 MG TABLET PO SCH (20:23)
[2023-09-04] MEDS ORDERED: VERAPAMIL HCL 180 MG TABCR PO SCH (21:00)
[2023-09-04] MEDS ORDERED: METOPROLOL SUCC 25MG EXT REL TAB PO SCH (21:00)
[2023-09-05 06:31] LABS: Basophils # (auto) 0.03 K/uL (0.00-0.20); Basophils % (auto) 0.4 %; Eosinophils # (auto) 0.21 K/uL (0.00-0.50); Hematocrit (blood only) 40.5 % (37.0-47.0); Immature Granulocytes # (auto) 0.02 K/uL (0.01-0.20); Immature Granulocytes % (auto) 0.3 %; Lymphocytes # (auto) 2.67 K/uL (1.20-3.40); Lymphocytes % (auto) 38.4 %; Mean Corpuscular Hemoglobin 27.3 pg (25.0-34.0); Mean Corpuscular Hgb Conc 32.1 g/dL (32.0-36.0); Mean Corpuscular Volume 84.9 fL (80.0-100.0); Mean Platelet Volume 10.9 fL (9.4-12.4); Monocytes # (auto) 0.58 K/uL (0.11-0.59); Monocytes % (auto) 8.3 %; Neutrophils # (auto) 3.45 K/uL (1.40-6.50); Neutrophils % (auto) 49.6 %; Platelet Count 189 K/uL (130-400); RDW Coefficient of Variation 13.8 % (11.5-14.5); RDW Standard Deviation 42.9 fL (36.4-46.3); Red Blood Count 4.77 M/uL (4.20-5.40); White Blood Count 6.96 K/ul (4.8-10.8)
[2023-09-05 06:46] LABS: BUN Creatinine Ratio 31.7 (10-20); Calcium 8.9 mg/dl (8.6-10.3); Creatinine Clr Calc Pharmacy 105.5 ml/min; Est GFR (African American) 114.8 ml/min; Est GFR (Non-African American) 99.1 ml/min; Magnesium 2.3 mg/dl (1.7-2.4); Phosphorus 3.6 mg/dl (2.5-4.9); Potassium 3.8 mmol/L (3.5-5.1)
--- NOTE | 2023-09-05 08:00 | Hospitalist Progress Note ---
Date of Service September 05, 2023 Assessment & Plan (1) Atrial fibrillation with rapid ventricular response: (2) Hypokalemia: (3) Acute dehydration: (4) SORAYA (obstructive sleep apnea): (5) Hypertension: (6) Asthma: (7) Depression: (8) Anxiety: (9) Diabetes: (10) Obesity (BMI 30-39.9): Plan #AFib with RVR / PAF - Cardizem 20 mg IV push, Cardizem 10 mg IV push, NSS 500 mL bolus - EKG showing AFib with RVR with ST depression - CHADS2 Vasc: 3 (gender, HTN, DM II) - TSH wnl - trop neg - ECHO - currently on hept gtt - on Metoprolol, frequency changed - cardiology eval pending #Hypokalemia - replete and monitor #HTN - cont losartan, metoprolol, verapamil - clonidine and HCTZ on hold - cont aspirin #DM II - Ha1c: 6.1 as far as 2021 - pt is not on any meds as outpatient - will monitor BG here - diabetic diet - will request community nutrition educator eval #Obesity - BMI 37 - counseled pt on diet and exercise #Asthma/SORAYA/allergic rhinitis- - Continue albuterol HFA 2 puffs every 6 hours as needed - Continue fexofenadine 100 mg daily as needed - Continue Flonase nasal spray Admission and Anticipated Discharge Date Admission Date: September 04, 2023 Subjective Admitted overnight Currently still having palpitations with elevated heart rate Otherwise doing well. Review of Systems Review of Systems: comprehensive ROS completed. Physical Exam Physical Exam: Gen: no acute distress, sitting in bed comfortably HEENT: normocephalic / atraumatic, anicteric, moist mucous membranes CVS: s1s2 nl, tachycardic, irregular, no M/R/G Lungs: CTAB Abd: + bowel sounds, soft, nontender, nondistended, no rigidity / guarding / rebound Ext: no edema Neuro: awake, alert Psych: non anxious Results & Data Results & Data Vital Signs (Past 12 Hours) Vital Signs Temp Pulse Resp BP Pulse Ox O2 Del Method 09/05/23 07:47 36.8 C 59 L 17 141/82 H 95 Room Air 09/05/23 03:54 36.5 C 61 17 145/80 H 97 Room Air 09/04/23 23:57 36.6 C 62 18 145/85 H 96 Room Air PG Care Time/CCT Total # of Minutes Spent Total Time Spent with Patient: Total time spent is greater than 50% in coordination of care (as documented) at patient's floor/unit and/or counseling patient: Coding Diagnoses Atrial fibrillation with rapid ventricular response I48.91 Hypokalemia E87.6 Acute dehydration E86.0 SORAYA (obstructive sleep apnea) G47.33 Primary hypertension I10 Hypertension type: primary hypertension Asthma J45.909 Depression F32.9 Anxiety F41.9 Diabetes E11.9 Obesity (BMI 30-39.9) E66.9 (5) Hypertension Hypertension type: primary hypertension Qualified Code(s): I10 - Essential (primary) hypertension
[2023-09-05] MEDS: ACETAMINOPHEN 325 MG TAB PO PRN (08:31)
--- NOTE | 2023-09-05 12:55 | Discharge Summary ---
Discharge Summary Date of Service September 05, 2023 Principal Dx & Hospital Course #1 = Principal Diagnosis (1) Atrial fibrillation with rapid ventricular response: (2) Hypokalemia: (3) Acute dehydration: (4) SORAYA (obstructive sleep apnea): (5) Hypertension: (6) Asthma: (7) Depression: (8) Anxiety: (9) Diabetes: (10) Obesity (BMI 30-39.9): Plan #AFib with RVR / PAF - Cardizem 20 mg IV push, Cardizem 10 mg IV push, NSS 500 mL bolus - EKG showing AFib with RVR with ST depression - CHADS2 Vasc: 2 (gender, HTN) - TSH wnl - trop neg - ECHO reviewed - hept gtt transitioned to eliquis - cardiology recs appreciated - converted pt back to Metoprolol XL at higher dose #Hypokalemia - replete and monitor #HTN - cont losartan, metoprolol, verapamil - clonidine and HCTZ on hold - cont aspirin #Pre-DM II - Ha1c: 6.1 as far as 2021 - pt is not on any meds as outpatient - further management with PCP #Obesity - BMI 37 - counseled pt on diet and exercise #Asthma/SORAYA/allergic rhinitis- - Continue albuterol HFA 2 puffs every 6 hours as needed - Continue fexofenadine 100 mg daily as needed - Continue Flonase nasal spray Admission HPI Per Admitting Provider The patient is a 58-year-old female with history of atrial fibrillation with RVR, nocturnal hypoxia, SORAYA, hypertension, hypersomnolence, peripheral neuropathy, asthma, tubular adenoma, depression, and anxiety. She has had atrial fibrillation with RVR in the past, for which she follows with cardiology, and notation is that she would have a recurrence, she would need to go on a nticoagulation. She reports that in April 2023, she being changed from 0.1 mg as needed to every evening, which seem to control her heart rate and blood pressure better, but she reports has had significant mouth dryness since that time. Discharge Exam Gen: no acute distress, sitting in bed comfortably HEENT: normocephalic / atraumatic, anicteric, moist mucous membranes CVS: s1s2 nl, tachycardic, irregular, no M/R/G Lungs: CTAB Abd: + bowel sounds, soft, nontender, nondistended, no rigidity / guarding / rebound Ext: no edema Neuro: awake, alert Psych: non anxious Updated Medication List Medication Instructions Recorded Confirmed Type [id number]-[id number] 250 2 tab PO Q6H PRN pain #30 tabs 10/04/18 09/04/23 Rx mg-250 mg-65 mg tablet (Excedrin Migraine) fexofenadine 180 mg tablet 180 mg PO DAILY PRN Allergy 08/26/21 09/04/23 History (Luzma Allergy) Symptoms fluticasone propionate 50 2 spray intranasal BID 08/26/21 09/04/23 History mcg/actuation nasal spray,suspension (Flonase Allergy Relief) hydrochlorothiazide 25 mg tablet 25 mg PO DAILY #30 tabs 10/08/22 09/04/23 Rx aspirin 81 mg tablet,delayed 81 mg PO DAILY 10/16/22 09/04/23 History release (Adult Aspirin Regimen) albuterol sulfate 90 mcg/actuation 2 puff inhalation Q6H PRN 02/16/23 09/04/23 Rx aerosol inhaler (Ventolin HFA) shortness of breath or wheezing #6.7 grams clonidine HCl 0.1 mg tablet 0.1 mg PO HS Hypertension #90 tabs 04/20/23 09/04/23 Rx verapamil 180 mg tablet,extended 180 mg PO DAILY #90 tabs 06/07/23 09/04/23 Rx release losartan 100 mg tablet 100 mg PO DAILY #90 tabs 08/03/23 09/04/23 Rx metoprolol succinate 25 mg 25 mg PO DAILY #90 tabs 08/03/23 09/04/23 Rx tablet,extended release 24 hr acetaminophen 650 mg 1,300 mg PO DAILY 09/04/23 09/04/23 History tablet,extended release (Tylenol Arthritis Pain) diclofenac sodium 1 % topical gel 2 g topical BID 09/04/23 09/04/23 History (Arthritis Pain (diclofenac)) apixaban 5 mg tablet (Eliquis) 5 mg PO BID 30 days #60 tabs 09/05/23 Rx Hospital Stay Data Consultations 09/04/23 03:16 ED Decision to Admit Stat 09/04/23 06:19 Consult Cardiology Routine Pending Results Patient Have Any Pending Studies at Discharge: No Discharge Instructions Given to Patient (Per Discharging Provider) You were admitted to the hospital for the evaluation of uncontrolled AFib. Your cardiac medications have been adjusted with improvement. You were evaluated by cardiology team. Please continue heart healthy , low caffeine diet. Also, continue to follow carb controlled diet to help control your pre-diabetes. Please schedule follow up with PCP in about 7 to 10 days. Please also follow up with your ip attorney as outpatient. Please note that you were also started on blood thinners. You are medically stable for discharge. It was a pleasure being a part of your medical care team during your stay at [facility]. Total Time Total Time Spent Total Time Spent (In Minutes): 45 mins Coding Level of Care Code 37247 INP/OBS DISCH >30 MIN Diagnoses Atrial fibrillation with rapid ventricular response I48.91 Hypokalemia E87.6 Acute dehydration E86.0 SORAYA (obstructive sleep apnea) G47.33 Primary hypertension I10 Hypertension type: primary hypertension Asthma J45.909 Depression F32.9 Anxiety F41.9 Diabetes E11.9 Obesity (BMI 30-39.9) E66.9
--- NOTE | 2023-09-06 05:56 | Electrocardiogram Report ---
Test Reason : Blood Pressure : / mmHG Vent. Rate : 063 BPM Atrial Rate : 063 BPM P-R Int : 206 ms QRS Dur : 080 ms QT Int : 418 ms P-R-T Axes : -07 032 013 degrees QTc Int : 427 ms Normal sinus rhythm Normal ECG When compared with ECG of 04-SEP-2023 00:04, Sinus rhythm has replaced Atrial fibrillation Vent. rate has decreased BY [address] no longer depressed in Inferior leads ST no longer depressed in Anterolateral leads Confirmed by Prabhu Bray ([id number]) on 09/06/2023 5:56:48 AM Referred By: REFERRED SELF Confirmed By:Prabhu Bray
--- NOTE | 2023-09-06 06:17 | Electrocardiogram Report ---
Test Reason : Blood Pressure : / mmHG Vent. Rate : 059 BPM Atrial Rate : 059 BPM P-R Int : 200 ms QRS Dur : 088 ms QT Int : 456 ms P-R-T Axes : 035 021 008 degrees QTc Int : 451 ms Sinus bradycardia Otherwise normal ECG When compared with ECG of 04-SEP-2023 13:21, (unconfirmed) No significant change was found Confirmed by Prabhu Bray ([id number]) on 09/06/2023 6:16:41 AM Referred By: REFERRED SELF Confirmed By:Prabhu Bray
== END 2023-09-05 14:05 | disposition home or self-care (01) ==
LOC: ED 23:57 → 2S 23:57 → SUATTDRO 09-04 04:23 → 2S 09-04 05:50

== ENCOUNTER 2024-12-22 06:32 | Observation (INO) ==
[2024-12-22] MEDS: SODIUM CHLORIDE 0.9% 1,000 ML IV ONE (06:51)
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
[2024-12-22 07:03] LABS: Hematocrit (blood only) 46.8 % (37.0-47.0); Hemoglobin 15.0 g/dl (12.0-16.0); Immature Granulocytes # (auto) 0.03 K/uL (0.01-0.20); Immature Granulocytes % (auto) 0.4 %; Mean Corpuscular Hemoglobin 27.7 pg (25.0-34.0); Mean Corpuscular Volume 86.3 fL (80.0-100.0); Platelet Count 201 K/uL (130-400); RDW Standard Deviation 39.9 fL (36.4-46.3); Red Blood Count 5.42 M/uL (4.20-5.40); White Blood Count 6.79 K/ul (4.8-10.8)
[2024-12-22 07:21] LABS: Alanine Aminotransferase 28.0 U/L (7-52); Albumin Globulin Ratio 0.9 (0.9-2); Albumin Level 3.9 gm/dl (3.4-5.0); Alkaline Phosphatase 79.0 U/L (34-104); Anion Gap 7.0 (3-11); Bilirubin,Total 0.4 mg/dl (0.2-1.0); Blood Urea Nitrogen 21.0 mg/dl (6-23); Calcium 9.5 mg/dl (8.6-10.3); Carbon Dioxide 29.0 mmol/L (21-32); Chloride 104.0 mmol/L (98-107); Creatinine Clr Calc Pharmacy 81.8 ml/min; Globulin 4.3 gm/dl (2.5-4.0); Glucose 117.0 mg/dl (70-99(Fasting)); Lipase 36.0 U/L (11-82); Magnesium 2.1 mg/dl (1.7-2.4); Potassium 3.8 mmol/L (3.5-5.1); Sodium 140.0 mmol/L (136-145); Total Protein 8.2 gm/dl (6.0-8.3)
[2024-12-22] MEDS: MAGNESIUM SULFATE / D5W 1 GM/100 ML BAG IV SCH (07:31)
[2024-12-22] MEDS: POTASSIUM CHLORIDE CRTAB 20 MEQ TABCR PO STA (07:35)
--- NOTE | 2024-12-22 08:25 | XRay Report ---
EXAM: XR chest 1V portable CLINICAL HISTORY: Chest pain, nonspecific TECHNIQUE: An X-ray image of the chest is obtained in AP projection. COMPARISON: 04:26:37 WEIGHER AND MIXER FINDINGS: Pulmonary Parenchyma: Lungs are clear bilaterally. No evidence of consolidation, collapse, or focal opacities. No pulmonary nodules are identified. No evidence of pleural effusion or pleural thickening. Heart and Mediastinum: Heart size and shape are normal. No mediastinal widening or masses. No hilar or mediastinal lymphadenopathy. Bony Thorax: Bony thorax appears intact without fractures or deformities. Soft Tissues: Soft tissues overlying the chest wall are unremarkable. IMPRESSION: Normal chest X-ray. No acute cardiopulmonary abnormalities are identified. No other new interval abnormality since prior study. Electronically signed by Xavier Way 12-22-2024 08:24 AM
[2024-12-22] MEDS: STAT IV Infusion **Titration per Protocol STA (08:54)
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
[2024-12-22 09:52] LABS: Thyroid Stimulating Hormone 2.365 uIu/ml (0.300-4.500)
[2024-12-22] MEDS ORDERED: ACETAMINOPHEN 325 MG TAB PO PRN (11:43)
[2024-12-22] MEDS ORDERED: MELATONIN 3 MG TAB PO PRN (11:43)
[2024-12-22] MEDS ORDERED: ALBUTEROL HFA 8 GM INHALER INH PRN (11:43)
[2024-12-22] MEDS ORDERED: busPIRone 15 MG TAB PO PRN (11:43)
[2024-12-22] MEDS ORDERED: FEXOFENADINE HCL 180 MG TAB PO PRN (11:43)
--- NOTE | 2024-12-22 19:10 | Electrocardiogram Report ---
Test Reason : Blood Pressure : */* mmHG Vent. Rate : 158 BPM Atrial Rate : * BPM P-R Int : * ms QRS Dur : 72 ms QT Int : 280 ms P-R-T Axes : * 30 -37 degrees QTcB Int : 454 ms Atrial fibrillation with rapid ventricular response Cannot rule out Anterior infarct , age undetermined Nonspecific ST abnormality Abnormal ECG When compared with ECG of 05-Sep-2023 06:32, Atrial fibrillation has replaced Sinus rhythm Vent. rate has increased by [address] depression has replaced ST elevation in Lateral leads T wave inversion more evident in Inferior leads Nonspecific T wave abnormality, worse in Anterior leads Confirmed by Mo Marks ([id number]) on 12/22/2024 7:10:19 PM Referred By: REFERRED SELF Confirmed By: Mo Marks
--- NOTE | 2024-12-22 19:11 | Electrocardiogram Report ---
Test Reason : Blood Pressure : */* mmHG Vent. Rate : 68 BPM Atrial Rate : 68 BPM P-R Int : 198 ms QRS Dur : 76 ms QT Int : 394 ms P-R-T Axes : -11 14 9 degrees QTcB Int : 418 ms Normal sinus rhythm Normal ECG When compared with ECG of 22-Dec-2024 06:39, Sinus rhythm has replaced Atrial fibrillation Vent. rate has decreased by 90 bpm T wave inversion less evident in Inferior leads Confirmed by Mo Marks ([id number]) on 12/22/2024 7:11:21 PM Referred By: REFERRED SELF Confirmed By: Mo Marks
[2024-12-22] MEDS: APIXABAN 5 MG TABLET PO SCH (20:05)
[2024-12-22] MEDS: FLUTICASONE PROPIONATE NA SPR 16 GM BTL SCH (20:05)
[2024-12-22] MEDS: METOPROLOL TARTRATE 25 MG TAB PO SCH (20:06)
[2024-12-23 07:05] VITALS: RESP 18; O2SAT 94
[2024-12-23 07:18] LABS: Hematocrit (blood only) 41.5 % (37.0-47.0); Hemoglobin 13.3 g/dl (12.0-16.0); Mean Corpuscular Hemoglobin 27.8 pg (25.0-34.0); Mean Corpuscular Volume 86.8 fL (80.0-100.0); Platelet Count 181 K/uL (130-400); RDW Standard Deviation 41.5 fL (36.4-46.3); Red Blood Count 4.78 M/uL (4.20-5.40); White Blood Count 6.33 K/ul (4.8-10.8)
[2024-12-23 07:41] LABS: Anion Gap 4.0 (3-11); Blood Urea Nitrogen 20.0 mg/dl (6-23); Calcium 8.9 mg/dl (8.6-10.3); Carbon Dioxide 29.0 mmol/L (21-32); Chloride 104.0 mmol/L (98-107); Creatinine Clr Calc Pharmacy 83.2 ml/min; Glucose 101.0 mg/dl (70-99(Fasting)); Potassium 4.1 mmol/L (3.5-5.1); Sodium 137.0 mmol/L (136-145)
[2024-12-23] MEDS: LOSARTAN POTASSIUM 50 MG TAB PO SCH (08:43)
[2024-12-23] MEDS: SPIRONOLACTONE 25 MG TAB PO SCH (08:44)
[2024-12-23] MEDS ORDERED: METOPROLOL SUCC 50MG EXT REL TAB PO SCH (09:00)
[2024-12-23] MEDS ORDERED: NON-FORMULARY MEDICATION (Acetaminophen [Tylenol Arthritis Pain] 650 mg Tablet Extended Re PO SCH (09:00)
--- NOTE | 2024-12-23 09:52 | Discharge Summary ---
Discharge Summary Date of Service December 23, 2024 Principal Dx & Hospital Course #1 = Principal Diagnosis (1) Hypertension: (2) Atrial fibrillation with rapid ventricular response: (3) Anxiety: Plan This patient is a 59-year-old female who presented on the morning of 12/22 after coming in for dizziness, heart racing, anxiety that woke her from sleep. Found to be in atrial fibrillation with RVR on arrival. Prior history of atrial fibrillation with RVR, with her last episode being August 2023. #Atrial fibrillation with RVR (resolved) On verapamil + metoprolol at home and reports good compliance Troponin WNL TSH WNL Patient was refractory to medications given in the ED: Diltiazem 20 mg IV x 1, diltiazem 30 mg IV x 1 Per ED, patient declined elective cardioversion Started on IV diltiazem drip Last echocardiogram on 07/05/2024 revealed LVEF at 60 to 65% with grade 1 diastolic dysfunction (abnormal relaxation pattern) Repeat echocardiogram ordered, pending Continue home dose of Eliquis 5 mg p.o. BID MEDICATION CHANGE: Metoprolol 25mg QAM -> 25mg BID ADDENDUM at 1330 on 12/22: Patient converted to NSR; dilt gtt discontinued Touched base with telemetry monitoring team on 12/23, and patient had no recurrence of atrial fibrillation overnight Patient will need cardiology follow-up as an OP #HTN Continue losartan, spironolactone, verapamil Increase metoprolol Clonidine PRN #Anxiety Continue buspirone PRN #Asthma Albuterol inhaler PRN Day of discharge 12/23: VSS Patient is in better spirits this morning. She reports that she feels "pretty good". While she felt like she has some "flutters" early in the evening last night, she feels like it could've been due to anxiety. Her dizziness is fully resolved, and she has been able to ambulate to the bathroom independently without any chest pain, shortness of breath, or recurrence of chest palpitations. Overall, she feels ready to return home today. She reports that she used to follow with Dr. Luna (Cardiology) before he retired this summer. She has an upcoming appointment with cardiology in March 2025, but is requesting something sooner. Additionally, patient reports that she has been on verapamil for an extended period of time; however, over the past week she has been experiencing side effects of her verapamil: She returns read "like a beat" and feels hot and flushed. While she noticed the side effects to a lesser degree whenever she took rat will be 4, they have been exacerbated over the past week. ROS: Patient denies fevers overnight, chest pain, SOB, chest palpitations, pleuritic CP, cough, abdominal pain, N/V/D, new numbness or tingling in the arms or legs, or changes in urinary bowel habits. Disposition: Discharge home with cardiology follow-up Notes For Next Care Provider Patient hospitalized for an episode of atrial fibrillation with RVR. She converted independently after being started on a diltiazem drip. TSH WNL. Troponin WNL. The only change we are making at time of discharge is increasing her metoprolol succinate from 25 mg QAM -> metoprolol tartrate 25 mg BID She may also need to switch from verapamil to diltiazem, however we will defer additional changes in cardiac medications at this time. Recommend close cardiology follow-up. Admission HPI Per Admitting Provider Mrs. Hawkins is a 59-year-old female with PMH of anxiety, depression, asthma, SORAYA, and paroxysmal atrial fibrillation (on Eliquis). She presented via EMS on the morning of 12/22 after she woke up at 0400 with her heart racing. Patient does have a history of atrial fibrillation with RVR and states that her last episode was in August 2023. Patient reports she can still feel her heart "beating heavy". She denies any chest pain, shortness of breath, or left shoulder/jaw pain at time of admission. She previously had an episode of A-fib with RVR in August 2023; at that time, they felt that it was due to dehydration. It was during a "hot streak", and so they removed her HCTZ, as her electrolytes were out of whack. Patient reports that she took her regular morning medicine today at 8:15 AM. She reports good compliance with all of her medications, with no missed doses in the past week. However, she does note that recently, whenever she takes verapamil her face becomes flushed and red. This is not new for her, but she now has noticed it getting worse. Additionally, patient was previously on metoprolol 50 mg p.o. QAM and 25 mg p.o. QPM, but this was decreased to 25 mg daily around 6 months ago. 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 She denies any prior history of issues with her thyroid, but has had a left lobe removed from her thyroid due to a nodule. Patient denies smoking, tobacco use, recent alcohol use. Patient is hypertensive at 161/98, and tachycardic at 134 bpm at time of admission; vitals otherwise stable. ED course: Diltiazem 20 mg IV x 1 Diltiazem 30 mg IV x 1 Diltiazem IV drip Magnesium sulfate 1 g IV x 2 Potassium chloride 20mEq x 1 NSS 1000 mL IV x 1 ROS: Patient endorses dizziness, lightheadedness, chest palpitations, seasonal cough (allergies), Patient denies fever, chills, night-sweats, headache, chest pain, SOB, pleuritic CP, abdominal pain, N/V/D, burning with urination, or blood in the urine/stool. Admission Exam Per Admitting Provider General: Patient appears acutely anxious; tearful in the room; non-toxic appearing; cooperative; SpO2 95% on RA HEENT: normocephalic, atraumatic; PERRLA; vision and hearing intact Neck: supple; trachea midline Skin: warm, dry without signs of tenting; no cyanosis; no rashes, bruising, lesions, or erythema appreciated CV: chest wall NTP; irregularly irregular heartbeat around 135 bpm Lungs: no acute respiratory distress; symmetrical chest wall expansion; clear breath sounds across all lung jacobs w/o adventitious sounds; no wheezing ABD: Soft, NTP; BS present; no rebound/guarding; no distention MSK: no tics or fasciculations; no edema noted in the LEs b/l, nonerythematous; 5/5 cable respooler strength bilaterally Neuro: A&Ox3; normal mood and affect; fluent speech; sensation intact and symmetric in the LEs b/l Discharge Exam General: No acute distress; pleasant affect; non-toxic appearing; cooperative; SpO2 94% on RA HEENT: normocephalic, atraumatic; PERRLA; vision and hearing intact Neck: supple; trachea midline Skin: warm, dry without signs of tenting; no cyanosis; no rashes, bruising, lesions, or erythema appreciated CV: chest wall NTP; RRR at 60 bpm; pulses intact and symmetric at radial, DP, and PT Lungs: no acute respiratory distress; symmetrical chest wall expansion; clear breath sounds across all lung jacobs w/o adventitious sounds; no wheezing ABD: Soft, NTP; BS present; no rebound/guarding; no distention MSK: no tics or fasciculations; no edema noted in the LEs b/l, nonerythematous; 5/5 cable respooler strength bilaterally Neuro: A&Ox3; normal mood and affect; fluent speech; patient reports sensation is intact and symmetric in the upper and lower extremities bilaterally assessed via light touch Discharge Plan Discharge Items Patient Disposition: Home - Self-Care Reason For Visit: A FIB WITH RVR Discharge Diagnosis: Atrial fibrillation with RVR Condition on Discharge: Good Activity: Resume your previous activity Non-emergency contact: Primary Care Provider and Data Coder Operator Call non-emergency contact if: you have any medication questions, your symptoms worsen and your pain is not controlled Follow-up/Referrals: Tiarra Martínez CRNP [Primary Care Provider] - 12/28/24 10:30 am (Primary Care hospital follow up scheduled on 12/28/24 at 10:30 with Tiarra Martínez) Diet: Regular Addtl Attending Provider Instructions: You are hospitalized at [facility] from 12/22 for 12/23 for dizziness, rapid heart rate, and chest palpitations. On arrival, an EKG revealed that you were in atrial fibrillation with a rapid ventricular rate around 170 bpm. You reported that this started around 0400 on 12/22. You were given a IV medication called diltiazem (also called "Cardizem") which is a calcium channel naty similar to the verapamil you take. After to being placed in an IV diltiazem drip, you converted back to normal sinus rhythm around 1300 on 12/22. Several lab tests were taken to identify the etiology of your atrial fibrillation, but none were done fine. Infection workup was negative; your thyroid level was normal; you also had a normal troponin level and no changes on your echocardiogram from prior studies, indicating no ischemic changes to your heart. We touched base with her telemetry monitoring team, and he had no recurrence of atrial fibrillation overnight in the hospital. Given your vitals are currently stable, you report resolution of your symptoms, and your blood work does not show signs of acute infection, we feel that you are safe to return home at this time with close cardiology follow-up. Please be on the look out for correspondence from our employment case manager regarding cardiology follow-up. The only change we are making to your current medications is that we are increasing your metoprolol to 25 mg (1 tablet in the morning and 1 tab at night). New prescription: - Metoprolol tartrate 25 mg tablets twice daily Please plan to follow-up with your PCP in the next 7 to 10 days for a transitional care appointment. If you develop any new or worsening symptoms, such as fever, chills, chest pain, chest palpitations, rapid heart rate, lightheadedness, passing out, or difficulty breathing, please return to the emergency department immediately. It was a pleasure take care of you. Please reach out with any questions or concerns. Sincerely, The Hospital medicine team at [facility] Pending Studies at Discharge: No Stand-Alone Forms: My [facility] Medications and DC Order Prescriptions: New metoprolol tartrate 25 mg tablet 25 mg PO BID 30 Days Qty: 60 0RF Rx Instructions: Take 1 tablet by mouth twice daily Continued buspirone 10 mg tablet 15 mg PO DAILY PRN (Reason: anxiety) Qty: 45 3RF Patient Comments: 12/21- last filled 03/27 30 day supply Rx Instructions: 1 hr before bed verapamil 180 mg tablet extended release 180 mg PO DAILY Qty: 90 3RF Rx Instructions: pt aware switch to tab losartan 100 mg tablet 100 mg PO DAILY Qty: 90 3RF Rx Instructions: TAKE 1 TABLET BY MOUTH DAILY. spironolactone 25 mg tablet 25 mg PO DAILY Qty: 90 3RF albuterol sulfate [Ventolin HFA] 90 mcg/actuation HFA aerosol inhaler 2 puff INH Q6H PRN (Reason: shortness of breath or wheezing) Qty: 6.7 5RF Eliquis 5 mg tablet 5 mg PO BID Qty: 60 11RF fexofenadine [Luzma Allergy] 180 mg tablet 180 mg PO DAILY PRN (Reason: Allergy Symptoms) Patient Comments: 12/22- otc unable to verify fluticasone propionate [Flonase Allergy Relief] 50 mcg/actuation spray,suspension 2 spray intranasal BID Patient Comments: 12/22- otc unable to verify Rx Instructions: USE 2 SPRAYS IN EACH NOSTRIL TWICE DAILY. clonidine HCl 0.1 mg tablet 0.1 mg PO DAILY PRN (Reason: Hypertension) Patient Comments: 12/22- no fill history unable to verify acetaminophen [Tylenol Arthritis Pain] 650 mg Tablet Extended Release 1,300 mg PO DAILY Patient Comments: 12/22- otc unable to verify diclofenac sodium [Arthritis Pain (diclofenac)] 1 % gel 2 g topical BID Patient Comments: 12/22- otc unable to verify Discontinued metoprolol succinate 25 mg tablet extended release 24 hr 25 mg PO DAILY Qty: 90 3RF Discharge Orders: Discharge Order (Routine); Ordered 12/23/24 Ordered By: Tyler Garcia/Other Patient Handouts: ED Atrial Fibrillation Admission Data Admit Date/Time: 12/22/24 09:36 Attending Provider: Trip Connolly Admit Provider: Trip Connolly Primary Care Provider: Tiarra Martínez Other Providers: Trip Connolly Other Interventions: Discharge Summary Assessment (RN) Last Done: 12/23/24 13:20 Hospital Stay Data Consultations 12/22/24 09:12 ED Decision to Admit Stat Discharge Instructions Given to Patient (Per Discharging Provider) You are hospitalized at [facility] from 12/22 for 12/23 for dizziness, rapid heart rate, and chest palpitations. On arrival, an EKG revealed that you were in atrial fibrillation with a rapid ventricular rate around 170 bpm. You reported that this started around 0400 on 12/22. You were given a IV medication called diltiazem (also called "Cardizem") which is a calcium channel naty similar to the verapamil you take. After to being placed in an IV diltiazem drip, you converted back to normal sinus rhythm around 1300 on 12/22. Several lab tests were taken to identify the etiology of your atrial fibrillation, but none were done fine. Infection workup was negative; your thyroid level was normal; you also had a normal troponin level and no changes on your echocardiogram from prior studies, indicating no ischemic changes to your heart. We touched base with her telemetry monitoring team, and he had no recurrence of atrial fibrillation overnight in the hospital. Given your vitals are currently stable, you report resolution of your symptoms, and your blood work does not show signs of acute infection, we feel that you are safe to return home at this time with close cardiology follow-up. Please be on the look out for correspondence from our employment case manager regarding cardiology follow-up. The only change we are making to your current medications is that we are increasing your metoprolol to 25 mg (1 tablet in the morning and 1 tab at night). New prescription: - Metoprolol tartrate 25 mg tablets twice daily Please plan to follow-up with your PCP in the next 7 to 10 days for a transitional care appointment. If you develop any new or worsening symptoms, such as fever, chills, chest pain, chest palpitations, rapid heart rate, lightheadedness, passing out, or difficulty breathing, please return to the emergency department immediately. It was a pleasure take care of you. Please reach out with any questions or concerns. Sincerely, The Hospital medicine team at [facility] Total Time Total Time Spent Total Time Spent (In Minutes): 35 Coding [place] [address] INP/OBS DISCH >30 MIN Patient Type Established History Comprehensive Exam Comprehensive Medical Decision Making Moderate Complexity Diagnoses Primary hypertension I10 Hypertension type: primary hypertension Atrial fibrillation with rapid ventricular response I48.91 Anxiety F41.9
[2024-12-23 11:18] VITALS: PULSE 53; TEMP 97.9
[2024-12-23] MEDS: VERAPAMIL HCL 180 MG TABCR PO STA (11:32)
--- NOTE | 2024-12-23 12:21 | XCELERA ---
[id number]
[2024-12-23 13:21] VITALS: BP 158/93
--- NOTE | 2024-12-23 16:48 | Electrocardiogram Report ---
Test Reason : Blood Pressure : */* mmHG Vent. Rate : 61 BPM Atrial Rate : 61 BPM P-R Int : 210 ms QRS Dur : 78 ms QT Int : 444 ms P-R-T Axes : 28 11 13 degrees QTcB Int : 446 ms Sinus rhythm with 1st degree A-V block Abnormal ECG When compared with ECG of 22-Dec-2024 13:28, No significant change was found Confirmed by Sadi Woods ([id number]) on 12/23/2024 4:47:54 PM Referred By: REFERRED SELF Confirmed By: Sadi Woods
== END 2024-12-23 13:43 | disposition home or self-care (01) | DRG 310 ==
LOC: ED 06:32 → INTOOBSV 09:36 → 2S 09:36